=== PATIENT | male | born 1965 | race Caucasian/White ===

== ENCOUNTER → 2019-03-22 09:41 | Outpatient (BNVA) | payer MEDICARE, SELFPAY | PROVIDERS: Family Provider Nurse Practitioner Family; PCP Nurse Practitioner Family; Referring Provider Nurse Practitioner Family; Visit Provider Specialist | DX: M25.562 Pain in left knee (principal); M17.12 Unilateral primary osteoarthritis, left knee; M76.52 Patellar tendinitis, left knee | CPT/HCPCS: 73560; 73565 ==

== ENCOUNTER → 2019-08-15 11:48 | Outpatient (BNVA) | payer MEDICARE, SELFPAY | PROVIDERS: Family Provider Nurse Practitioner Family; PCP Nurse Practitioner Family; Visit Provider Specialist | DX: M17.12 Unilateral primary osteoarthritis, left knee (principal) | CPT/HCPCS: 73560; 73565 ==

== ENCOUNTER 2019-08-15 15:24 | Outpatient (CLI) | payer MEDICARE, SELFPAY | END 2019-08-15 15:25 | disposition home or self-care (01) | LOC: SPT 15:25 | PROVIDERS: Family Provider Nurse Practitioner Family; PCP Nurse Practitioner Family; Visit Provider Specialist | DX: Z46.89 Encounter for fitting and adjustment of other specified devices (principal); M17.12 Unilateral primary osteoarthritis, left knee | CPT/HCPCS: 73560; 73565; 97760; L1812 ==

== ENCOUNTER 2019-09-12 12:49 | Outpatient (CLI) | payer MEDICARE, SELFPAY ==
--- NOTE | 2019-09-12 12:57 | IR_ITS ---
WS: [id number] LEFT KNEE CT ARTHROGRAM (FLUOROSCOPY) LEFT knee arthrogram was performed in fluoroscopy prior to CT evaluation. HISTORY: LEFT KNEE PAIN COMPARISON: 08/15/2019 Fluoroscopy time: 0.7 minutes. Procedure, risks and complications were explained to the patient. Complications include but not limit ed to bleeding, infection and contrast reaction. Current medications are reviewed. Skin is cleansed with ChloraPrep. Skin is anesthetized with 1% buffered lidocaine. 22-gauge needle is inserted into the LEFT suprapatellar bursa. Approximately 30 cc of Omnipaque 300 injected without co mplication. Patient will proceed to CT evaluation immediately. No complications were encountered. Patient is instructed to watch for post procedure infection or ble eding. Patient is also instructed to contact the radiology department with any concerns. Good injection of contrast into the knee joint. Mcmahan's cyst is noted medially. IR/[place] [id number] IMPRESSION: Uncomplicated LEFT knee joint injection prior to CT arthrogram.
--- NOTE | 2019-09-12 14:00 | CT_ITS ---
WS: [id number] CT ARTHROGRAM LEFT KNEE. HISTORY: KNEE PAIN Technique: All CT scans at [facility] use at least one of these dose optimization techniq ues: automated exposure control; mA and/or kV adjustment per patient size (includes targeted exams wh ere dose is matched to clinical indication); or iterative reconstruction. DLP: 1246.99 mGy-cm. COMPARISON: Radiographs 08/15/2019 Good opacification of the knee joint with contrast. Complex tear in the posterior horn of the medial meniscus. Horizontal and vertical components are not ed. No additional meniscal tears. Patellofemoral articulation is intact. No contrast extending into t he cartilage. Lateral menisci are intact. No contrast filling cartilage tears is evident. There is a very large Mcmahan's cyst which is lobulated and extends over length of at least 6.3 cm. A f ew scattered vascular calcifications present in the popliteal artery. CT/CT knee LT w con [id number] IMPRESSION: 1. Complex tear posterior horn medial meniscus LEFT knee. Horizontal and verti jessee components of the tear. 2. Large Mcmahan's cyst. 3. No contrast filling osteochondral defects.
[2019-09-12] MEDS: iohexol 300 mg/mL 50 mL Btl INTRA-ARTI (14:06)
== END 2019-09-12 12:50 | disposition home or self-care (01) ==
LOC: RADWPI 12:52
PROVIDERS: Family Provider Nurse Practitioner Family; PCP Nurse Practitioner Family; Visit Provider Specialist
DX: M25.562 Pain in left knee (principal); S83.232A Complex tear of medial meniscus, current injury, left knee, initial encounter; X58.XXXA Exposure to other specified factors, initial encounter; M71.22 Synovial cyst of popliteal space [Baker], left knee
CPT/HCPCS: 27369; 73701; 77002; Q9967

== ENCOUNTER → 2019-09-28 11:00 | Outpatient (BNVA) | payer MEDICARE, SELFPAY | PROVIDERS: PCP Nurse Practitioner Family; Visit Provider Internal Medicine | DX: R50.9 Fever, unspecified (principal) | CPT/HCPCS: 87635 ==

== ENCOUNTER 2019-10-02 09:38 | Day surgery (SDC) | payer MEDICARE, SELFPAY ==
[2019-10-02] MEDS: sodium chloride 0.9% 1,000 ML 30 ML IV (10:12)
[2019-10-02] MEDS: CELEcoxib 200 mg Capsule 400 MG PO (10:13)
[2019-10-02 10:23] LABS: Basophils # 0.1 10^3/uL (0.0-0.1); Basophils % 0.8 %; Eosinophils # 0.1 10^3/uL (0.0-0.8); Eosinophils % 1.3 %; Hematocrit 48.8 % (42.0-52.0); Hemoglobin 17.1 g/dL (11.7-16.6); Lymphocytes # 2.3 10^3/uL (0.8-4.8); Lymphocytes % 29.8 %; Mean Corpuscular Hemoglobin 31.7 pg (28.0-34.0); Mean Corpuscular Volume 90.4 fL (80-94); Mean Platelet Volume 9.3 fL (7.4-10.4); Monocytes # 0.5 10^3/uL (0.2-0.9); Neutrophils # 4.55 10^3/uL (1.8-7.7); Neutrophils % 60.3 %; Nucleated Red Blood Cells % 0 %; Platelet Count 220 10^3/cmm (130-400); Red Cell Distribution Width 12.6 % (12.1-15.1); White Blood Count 7.6 10^3/uL (4.0-10.0)
--- NOTE | 2019-10-02 10:45 | ANES.PREANE2 ---
Pre-Anesthetic Assessment Pre-Anesthetic Assessment: Height/Weight: Height 1.68 m Weight 92.986 kg Preop Diagnosis: Left knee medial meniscal tear Proposed Procedure: Operation Date: 10/02/19 11:25 Proposed Procedures p Left knee medial menisectomy with debridement 13185 S83.249(Left) - Nancy Howard MD Familial anesthetic complications: Shivering Last intake: Intake Last Liquid Date 10/01/19 Last Liquid Time 23:55 Last Solid Date 10/01/19 Last Solid Time 18:00 Social: Social History: Alcohol and No tobacco Comment: 6-7 beers a day Exam: Pre-Anes Outpt Exam: alert, oriented x 3, clear to auscultation bilaterally and regular rate & rhythm Airway: Cervical ROM: WNL MP: 4 Dentition: Chipped Additional comments: large neck circumference Pulmonary: Comments: hx of pneumonia years ago Metabolic: Metabolic: Morbid obesity Anesthetic Plan: ASA status: 1 Anesthesia: General Risk of > 500 ml blood loss (7ml/kg in children): No Meds/Allergies Current Medications: Current Medications Generic Name Dose Route Start Last Admin Trade Name Freq PRN Reason Stop Dose Admin Sodium Chloride 1,000 mls @ 30 ml s/hr 10/02/19 10:15 10/02/19 10:12 Sodium Chloride 0.9% IV 10/03/19 10:14 30 mls/hr .Q24H ASHLEY Administration PFSH Anesthesia PFSH: Medical History (Updated 09/27/19 @ 15:56 by Nancy Howard MD) Left knee DJD Surgical History H/O foot surgery History of back surgery Family History Other Diabetes Stroke Social History Smoking and tobacco status: heavy tobacco smoker smokeless tobacco Smokeless tobacco user: chewing tobacco Data Anesthesia CBC & Chem 7: 10/02/19 10:00 10/02/19 10:00 Other Labs: Laboratory Results - last 48 hr 10/02/19 10:00 WBC 7.6 RBC 5.40 H Hgb 17.1 H Hct 48.8 MCV 90.4 MCH 31.7 MCHC 35.0 RDW 12.6 Plt Count 220 MPV 9.3 Neut % (Auto) 60.3 Lymph % (Auto) 29.8 [place] % (Auto) 7.0 Eos % (Auto) 1.3 Baso % (Auto) 0.8 Neut # (Auto) 4.55 Lymph # (Auto) 2.3 [place] # (Auto) 0.5 Eos # (Auto) 0.1 Baso # (Auto) 0.1 Nucleated RBC % (auto) 0 Nucleated RBCs # 0.0 Cardiac Studies: No Data to Display
[2019-10-02 10:51] LABS: Alanine Aminotransferase 42 U/L (0-41); Albumin Level 4.6 g/dL (3.5-5.2); Alkaline Phosphatase 86 IU/L (40-130); Anion Gap 14.1 (5-19); Aspartate Amino Transferase 28 U/L (0-40); Blood Urea Nitrogen 10 mg/dL (6-20); Calcium 8.9 mg/dL (8.5-10.5); Carbon Dioxide 22 mmol/L (22-29); Chloride 107 mmol/L (98-107); Globulin 2.9 g/dL (1.3-4.6); Glomerular Filtration Rate 77.9 mL/min (90-130); Glucose 122 mg/dL (65-115); Osmolality Calculated 285 mOsm/kg (285-295); Potassium 4.1 mmol/L (3.5-5.1); Sodium 139 mmol/L (136-145); Total Bilirubin 0.7 mg/dL (0.15-1.2); Total Protein 7.5 g/dL (6.6-8.7)
--- NOTE | 2019-10-02 11:20 | W.PM.OPSUD ---
Surgery/Procedure H&P Update DATE OF PROCEDURE: October 02, 2019 DATE H&P PERFORMED: 09/26/19 H&P UPDATE INFORMATION: I have reviewed H&P completed within last 30 days, I have examined patient prior to procedure, No changes to prior documentation and H&P is in [facility] EMR on date indicated PREOP DIAGNOSIS: Left knee medial meniscal tear PLANNED PROCEDURE: Operation Date: 10/02/19 11:25 Proposed Procedures p Left knee medial menisectomy with debridement 07868 S83.249(Left) - Nancy Howard MD Related Problem List Diagnoses (1) Medial meniscus tear: Qualifiers: Tear current or old: current Encounter type: initial encounter Meniscus tear of knee type: complex Laterality: left Qualified Code(s): S83.232A - Complex tear of medial meniscus, current injury, left knee, initial encounter (2) Left knee DJD: Qualifiers: Osteoarthritis type: primary Qualified Code(s): M17.12 - Unilateral primary osteoarthritis, left knee
[2019-10-02] MEDS: clindamycin 600 MG/50 ML PREMIX 100 MG IV (11:43)
[2019-10-02] MEDS: morphine 4 mg/mL SDV 1 mL 8 MG XX (12:36)
[2019-10-02 13:07] VITALS: BP 162/100; PULSE 102; RESP 16; TEMP 36.2; O2SAT 96
[2019-10-02 13:10] VITALS: BP 148/100; PULSE 97; RESP 17; O2SAT 97
[2019-10-02 13:15] VITALS: BP 165/99; PULSE 102; RESP 16; TEMP 36.5; O2SAT 94
[2019-10-02 13:20] VITALS: BP 145/98; PULSE 94; RESP 16; TEMP 36.6; O2SAT 95
[2019-10-02 13:35] VITALS: BP 158/95; PULSE 85; RESP 16; TEMP 36.6; O2SAT 96
[2019-10-02] MEDS: HYDROcodone-acetaminophen 5-325 mg Tablet 1 TAB PO (13:37)
--- NOTE | 2019-10-02 14:00 | ANE.PACU2 ---
Inpatient post-anesthesia follow up: Airway intact: Yes Vital signs: Temperature 97.9 F Pulse Rate 85 Respiratory Rate 16 Blood Pressure 158/95 Pulse Oximetry 96 Oxygen Delivery Me thod Room Air Oxygen Flow Rate 8 Fraction of Inspir ed Oxygen Hydration adequate: Yes Nausea and vomiting: No Pain level: 1 Mental status: Baseline
--- NOTE | 2019-10-02 15:11 | P.OP_ITS ---
Operative Report Date of procedure: October 02, 2019 Pre-op Diagnosis: Left knee medial meniscal tear Post-op Diagnosis: Left knee medial and lateral meniscus tears Post-op Findings: Complex tear posterior half of the medial meniscus and posterior horn tear lateral meniscus with synovitis Procedure Done: Left arthroscopic knee surgery with partial medial and lateral meniscectomies and synovial debridement Pathology: none sent Surgeon: aNncy Howard Risk Control Field Representative: [facility] OR technicians Estimated blood loss (mL): 10 Tourniquet time (min): 41 Tourniquet time: At 250 mmHg IV fluids (mL): 1,300 Urine output (mL): 0 Complications: None Condition: stable Disposition: PACU (Then home with family) Brief History: This 53-year-old gentleman presented with complaints of left knee pain. His MRI demonstrated a posterior horn medial meniscal tear, and the patient had signs and symptoms of degenerative osteoarthritic change. The patient wished to proceed with arthroscopic intervention. Risks and complications were discussed with him preoperatively, and consents were signed. Procedure: Patient was brought to the operating theater and after undergoing adequate general anesthesia, the patient's left lower extremity was prepped and draped in usual fashion utilizing DuraPrep. A tourniquet was placed high on the leg prior to prepping and draping. The tourniquet was elevated prior to commencement of the surgical procedure to 250 mmHg. Total tourniquet time was 41 minutes. Elevation followed prepping and exsanguination. Prior to commencement of the surgical procedure, a surgical pause was performed. At the time of the surgical pause, we identified the site and side of surgery. We also confirmed the patient's identity and appropriate and timely administration of preoperative antibiotics. Preoperative surgical markings were also visualized at this time. Standard arthroscopic portals were utilized including superolateral, infe romedial, and inferolateral portals. The examination commenced in the suprapatellar pouch area where the patient was noted to have synovitis along the medial border of the patellofemoral compartment. The arthroscope was then passed in the medial compartment where there was noted to be complex tearing in the posterior horn of the medial meniscus. The anterior horn was noted to be intact. There was minimal cartilaginous change within the medial compartment. The arthroscope was then passed across the notch area where anterior cruciate ligament was visualized and found to be intact. The scope was passed into the lateral compartment with the knee in a [id number] position. Lateral meniscus was noted to have complex tearing of the posterior horn, but otherwise, the meniscus appeared intact. It was palpated and found to not be displaceable into the knee joint. The complex posterior horn lateral meniscal tear was addressed with a combination of the intra-articular shaver and the heat wand. Scope was then returned to the medial compartment where complex tearing of the medial meniscus was addressed. This was addressed with a combination of basket forceps, the intra-articular shaver, and the heat wand. The anterior horn was noted to be intact. The meniscus was palpated and found to be not displaceable into the knee joint. The arthroscope was then returned to the patellofemoral joint where a synovectomy was performed. This synovectomy involved use of the intra-articular shaver as well as the heat wand. Once the patellofemoral compartment had been addressed, the scope was passed back through the knee compartments to evaluate for other abnormalities. Finding none, attention was directed to closure. The knee was copiously irrigated and suctioned dry. Following this, each portal was closed with a simple suture followed by Exofin and Tegaderm. Additionally, the knee was injected with 20 mL of half percent ropivacaine and 8 mg of morphine. Additional 10 mL of ropivacaine was placed about the portals. Sterile dressing was placed consisting of the Tegaderm followed by the Nabil wrap. Patient was returned to Recovery Room in satisfactory condition where he will be discharged home to follow-up with me in the office as scheduled. There were no complications and no specimens. Associated Problem List Diagnoses (1) Lateral meniscus tear, current: Qualifiers: Encounter type: initial encounter Meniscus tear of knee type: complex Laterality: left Qualified Code(s): S83.272A - Complex tear of lateral meniscus, current injury, left knee, initial encounter (2) Medial meniscus tear: Qualifiers: Encounter type: initial encounter Laterality: left Meniscus tear of knee type: complex Tear current or old: current Qualified Code(s): S83.232A - Complex tear of medial meniscus, current injury, left knee, initial encounter
== END 2019-10-02 14:00 | disposition home or self-care (01) ==
PROVIDERS: PCP Nurse Practitioner Family; Visit Provider Specialist
PROC: (CPT 29870; principal; 2019-10-02 11:25)
DX: S83.232A Complex tear of medial meniscus, current injury, left knee, initial encounter (principal); S83.272A Complex tear of lateral meniscus, current injury, left knee, initial encounter; M17.12 Unilateral primary osteoarthritis, left knee; M65.862 Other synovitis and tenosynovitis, left lower leg; E66.01 Morbid (severe) obesity due to excess calories; F17.220 Nicotine dependence, chewing tobacco, uncomplicated; X58.XXXA Exposure to other specified factors, initial encounter
CPT/HCPCS: 29880; 12345; 80053; 85025; 96365; J0131; J1100; J1885; J2270; J2405; J2704; J2765; J2795; J3010; J3490; J7030

== ENCOUNTER → 2019-12-12 12:42 | Outpatient (BNVA) | payer MEDICARE, SELFPAY | PROVIDERS: PCP Nurse Practitioner Family; Visit Provider Specialist | DX: Z11.59 Encounter for screening for other viral diseases (principal) | CPT/HCPCS: 87635 ==

== ENCOUNTER 2019-12-18 07:07 | Day surgery (SDC) | payer MEDICARE, SELFPAY ==
[2019-12-17 14:27] VITALS: BMI 33.9
[2019-12-18] VITALS (7 sets, daily range): BP systolic 131–156; BP diastolic 91–108; PULSE 69–85; RESP 16–28; TEMP 36.3–36.6; O2SAT 93–100; BMI 33.9
[2019-12-18] MEDS: sodium chloride 0.9% 1,000 ML 30 ML IV (07:34)
[2019-12-18] MEDS: CELEcoxib 200 mg Capsule 400 MG PO (07:35)
[2019-12-18 07:40] LABS: Basophils % 0.4 %; Eosinophils # 0.1 10^3/uL (0.0-0.8); Eosinophils % 1.7 %; Hematocrit 49.8 % (42.0-52.0); Hemoglobin 17.1 g/dL (11.7-16.6); Lymphocytes # 1.9 10^3/uL (0.8-4.8); Lymphocytes % 36.6 %; Mean Corpuscular HGB Conc 34.3 g/dL (30.0-36.0); Mean Corpuscular Hemoglobin 30.9 pg (28.0-34.0); Mean Corpuscular Volume 89.9 fL (80-94); Mean Platelet Volume 9.6 fL (7.4-10.4); Monocytes # 0.5 10^3/uL (0.2-0.9); Monocytes % 9.1 %; Neutrophils # 2.72 10^3/uL (1.8-7.7); Neutrophils % 51.4 %; Nucleated Red Blood Cells % 0 %; Platelet Count 221 10^3/cmm (130-400); Red Blood Count 5.54 10^6/uL (4.1-5.3); Red Cell Distribution Width 12.3 % (12.1-15.1); White Blood Count 5.3 10^3/uL (4.0-10.0)
--- NOTE | 2019-12-18 07:53 | P.HPUD_ITS ---
Surgery/Procedure H&P Update DATE OF PROCEDURE: December 18, 2019 DATE H&P PERFORMED: 12/06/19 H&P UPDATE INFORMATION: I have reviewed H&P completed within last 30 days, I have examined patient prior to procedure, No changes to prior documentation and H&P is in [facility] EMR on date indicated PREOP DIAGNOSIS: Internal derangement left knee PLANNED PROCEDURE: Operation Date: 12/18/19 08:00 Proposed Procedures p Left Knee Arthroscopy with debridement 35364 M23.92(Left) - Nancy Howard MD Related Problem List Diagnoses (1) Internal derangement of left knee:
--- NOTE | 2019-12-18 07:53 | ANES.PREANE2 ---
Pre-Anesthetic Assessment Pre-Anesthetic Assessment: Height/Weight: Height 1.68 m Weight 95.254 kg Temp Pulse Resp BP Pulse Ox 97.7 F 74 18 140/91 99 12/18/19 07:16 12/18/19 07:16 12/18/19 07:16 12/18/19 07:16 12/18/19 07:16 Preop Diagnosis: Internal derangement left knee Proposed Procedure: Operation Date: 12/18/19 08:00 Proposed Procedures p Left Knee Arthroscopy with debridement 66233 M23.92(Left) - Nancy Howard MD Familial anesthetic complications: None Was Beta Gena taken within 24 hours: N/A Last intake: Intake Last Liquid Date 12/17/19 Last Liquid Time 23:30 Last Solid Date 12/17/19 Last Solid Time 22:00 Social: Social History: Alcohol (6-7 beers daily) and No tobacco Exam: Pre-Anes Outpt Exam: alert, oriented x 3, clear to auscultation bilaterally and regular rate & rhythm Airway: Cervical ROM: WNL MP: 4 Dentition: Chipped Additional comments: large neck Anesthetic Plan: ASA status: 1 Anesthesia: MAC Risk of > 500 ml blood loss (7ml/kg in children): No Meds/Allergies Current Medications: Current Medications Generic Name Dose Route Start Last Admin Trade Name Freq PRN Reason Stop Dose Admin Sodium Chloride 1,000 mls @ 30 ml s/hr 12/18/19 06:45 12/18/19 07:34 Sodium Chloride 0.9% IV 12/19/19 06:44 30 mls/hr .Q24H ASHLEY Administration PFSH Anesthesia PFSH: Medical History (Updated 12/06/19 @ 15:46 by Nancy Howard MD) Left knee DJD Surgical History H/O foot surgery History of back surgery Family History Other Diabetes Stroke Social History Smoking and tobacco status: heavy tobacco smoker smokeless tobacco Smokeless tobacco user: chewing tobacco Data Anesthesia CBC & Chem 7: 12/18/19 07:30 12/18/19 07:30 Other Labs: Laboratory Results - last 48 hr 12/18/19 07:30 WBC 5.3 RBC 5.54 H Hgb 17.1 H Hct 49.8 MCV 89.9 MCH 30.9 MCHC 34.3 RDW 12.3 Plt Count 221 MPV 9.6 Neut % (Auto) 51.4 Lymph % (Auto) 36.6 [place] % (Auto) 9.1 Eos % (Auto) 1.7 Baso % (Auto) 0.4 Neut # (Auto) 2.72 Lymph # (Auto) 1.9 [place] # (Auto) 0.5 Eos # (Auto) 0.1 Baso # (Auto) 0.0 Nucleated RBC % (auto) 0 Nucleated RBCs # 0.0 Cardiac Studies: No Data to Display
[2019-12-18 08:03] LABS: Alanine Aminotransferase 70 U/L (0-41); Albumin Level 4.4 g/dL (3.5-5.2); Alkaline Phosphatase 100 IU/L (40-130); Anion Gap 15.3 (5-19); Aspartate Amino Transferase 46 U/L (0-40); Blood Urea Nitrogen 14 mg/dL (6-20); Carbon Dioxide 22 mmol/L (22-29); Chloride 107 mmol/L (98-107); Globulin 3.1 g/dL (1.3-4.6); Glomerular Filtration Rate 77.9 mL/min (90-130); Glucose 105 mg/dL (65-115); Osmolality Calculated 291 mOsm/kg (285-295); Potassium 4.3 mmol/L (3.5-5.1); Sodium 140 mmol/L (136-145); Total Bilirubin 0.4 mg/dL (0.15-1.2); Total Protein 7.5 g/dL (6.6-8.7)
[2019-12-18] MEDS: clindamycin 600 MG/50 ML PREMIX 100 MG IV (08:03)
[2019-12-18] MEDS: morphine 4 mg/mL SDV 1 mL 8 MG IM (08:47)
--- NOTE | 2019-12-18 10:07 | PM.OP ---
Operative Report Date of procedure: December 18, 2019 Pre-op Diagnosis: Internal derangement left knee Post-op Diagnosis: Left knee adhesions with recurrent medial and lateral meniscal tears, joint effusion, and synovitis Procedure Done: Left arthroscopic knee surgery with partial medial and lateral meniscectomies and synovial debridement Pathology: none sent Surgeon: Nancy Howard Agri Business Agent: [facility] OR technicians Anesthesia: General (LMA, ASA 1) Estimated blood loss (mL): 2 Tourniquet time (min): 51 Tourniquet time: At 250 mmHg IV fluids (mL): 1,000 Urine output: No [place] Complications: None Findings: Significant synovitis with irregularity at the area of previous meniscectomy. There was also evidence of significant adhesions within the knee and effusion upon entry into the knee. Condition: stable Disposition: PACU (Then to same-day surgery for discharge home.) Brief History: This 53-year-old gentleman underwent arthroscopic knee surgery on October 02, 2019. He was doing well postoperatively, but then he noted that his knee began clicking and locking on occasion. The patient wished to have this readdressed. He also had increased swelling. He denied any significant new injury. Procedure: Patient was brought to the operating theater and after undergoing adequate general anesthesia per LMA, ASA 1, the patient's left lower extremity was prepped and draped in usual fashion utilizing DuraPrep. A tourniquet was placed high on the leg prior to prepping and draping. The tourniquet was elevated prior to commencement of the surgical procedure to 250 mmHg. Total tourniquet time was 51 minutes. Elevation followed prepping and exsanguination. Prior to commencement of the surgical procedure, a surgical pause was performed. At the time of the surgical pause, we identified the site and side of surgery. We also confirmed the patient's identity and appropriate and timely administration of preoperative antibiotics, clindamycin 600 mg. Preoperative surgical markings were also visualized at this time. Standard arthroscopic portals were utilized including superolateral, inferomedial, and inferolateral portals. There was significant thick synovial fluid obtained upon entry into the joint. Examination commenced, and the patient was noted to have synovitis as well as adhesions throughout the knee. These were addressed with a combination of the arthroscopic shaver and manual debridement. It was difficult to evaluate the suprapatellar pouch area as the patient was quite tight. Further anesthesia was administered. There was synovitis noted in the suprapatellar pouch and this was debrided. Following this, the arthroscope was then passed into the medial compartment. Anteriorly, across the anterior aspect of the medial compartment, the lateral compartment, and the anterior aspect of the anterior cruciate ligament, there was significant synovitis and adhesions. These were addressed with the shaver and with the intra-articular heat wand. Once these were addressed, the knee was easier to manipulate. Previous medial meniscal resection was evaluated, this was further debrided with the shaver and with the heat wand. There were no displaceable fragments to account for locking. The meniscus was otherwise found to be intact without evidence of significant new injury aside from the adhesions around it. The arthroscope was then passed across the notch area where anterior cruciate ligament was visualized and found to be intact, but again, there was synovitis, and this was debrided with the shaver and addressed with the heat wand. The scope was passed into the lateral compartment with the knee in a [id number] position. Lateral meniscus was noted to have recurrent inner rim irregularity. This was addressed with the intra-articular shaver and the heat wand. Palpation of the meniscus demonstrated there were no displaceable fragments. The meniscus was noted to be quite stable. The arthroscope was then returned to the patellofemoral joint where a synovectomy was performed. This synovectomy involved use of the intra-articular shaver as well as the heat wand. Once the patellofemoral compartment had been addressed, the scope was passed back through the knee compartments to evaluate for other abnormalities. Finding none, attention was directed to closure. The knee was copiously irrigated and suctioned dry. Following this, each portal was closed with a simple suture followed by Exofin and Tegaderm. Additionally, the knee was injected with 20 mL of half percent ropivacaine and 8 mg of morphine. Additional 10 mL of ropivacaine was placed about the portals. Sterile dressing was placed consisting of the Tegaderm followed by the Nabil wrap. Patient was returned to Recovery Room in satisfactory condition where he will be discharged home to follow-up with me in the office as scheduled. There were no complications and no specimens. Associated Problem List Diagnoses (1) Internal derangement of left knee:
[2019-12-18] MEDS: HYDROcodone-acetaminophen 5-325 mg Tablet 1 TAB PO (10:33)
--- NOTE | 2019-12-18 10:40 | ANE.PACU2 ---
Inpatient post-anesthesia follow up: Airway intact: Yes Vital signs: Temperature 97.3 F Pulse Rate 69 Respiratory Rate 20 Blood Pressure 155/96 Pulse Oximetry 98 Oxygen Delivery Me thod Room Air Oxygen Flow Rate 8 Fraction of Inspir ed Oxygen Hydration adequate: Yes Nausea and vomiting: No Pain level: 5 Mental status: Baseline
== END 2019-12-18 10:43 | disposition home or self-care (01) ==
PROVIDERS: PCP Nurse Practitioner Family; Visit Provider Specialist
PROC: (CPT 29870; principal; 2019-12-18 08:00)
DX: M23.92 Unspecified internal derangement of left knee (principal); F17.210 Nicotine dependence, cigarettes, uncomplicated
CPT/HCPCS: 29880; 12345; 36415; 80053; 85025; 96365; J0131; J1100; J2270; J2405; J2704; J2710; J2795; J3010; J3490; J7030

== ENCOUNTER → 2020-04-24 16:28 | Outpatient (BNVA) | payer MEDICARE, SELFPAY | PROVIDERS: PCP Nurse Practitioner Family; Visit Provider Nurse Practitioner Family | DX: R53.83 Other fatigue (principal); I10 Essential (primary) hypertension; D58.2 Other hemoglobinopathies; G47.00 Insomnia, unspecified; M17.12 Unilateral primary osteoarthritis, left knee | CPT/HCPCS: 80053; 80061; 84443; 85025 ==

== ENCOUNTER → 2020-12-09 10:03 | Outpatient (BNVA) | payer MEDICARE, SELFPAY | PROVIDERS: PCP Nurse Practitioner Family; Visit Provider Nurse Practitioner Family | DX: I10 Essential (primary) hypertension (principal); G47.00 Insomnia, unspecified; M25.562 Pain in left knee | CPT/HCPCS: 80048; 80061 ==

== ENCOUNTER → 2021-02-11 10:59 | Outpatient (BNVA) | payer MEDICARE, SELFPAY | PROVIDERS: PCP Nurse Practitioner Family; Referring Provider Nurse Practitioner Family; Visit Provider Specialist | DX: M25.561 Pain in right knee (principal); M25.562 Pain in left knee; M77.32 Calcaneal spur, left foot | CPT/HCPCS: 73560; 73565 ==

== ENCOUNTER 2021-02-27 14:42 | Emergency (ER) | payer MEDICARE, SELFPAY ==
[2021-02-27 14:58] VITALS: TEMP 37.3; BMI 32.3
--- NOTE | 2021-02-27 15:02 | ECG_ITS ---
[facility] Test Date: 2021-02-27 Pat Name: Andre Conn Department: Room: Gender: Male Rn Home Care: : 1965 Requested By: Wayne Hamilton Order Number: [id number] Reading MD: DAVID BECK Measurements Intervals [place] Rate: 66 P: 36 IN: 149 QRS: -37 QRSD: 105 T: 30 QT: 381 QTc: 400 Interpretive Statements SINUS RHYTHM LEFT AXIS DEVIATION [QRS AXIS < -30] No previous ECG available for comparison Electronically Signed On 02-27-2021 18:14:23 FREIGHT ADJUSTER by DAVID BECK [id number]
--- NOTE | 2021-02-27 15:02 | XR_ITS ---
WS: [id number] XR chest 1V portable [id number] REASON FOR EXAM: chest pain FINDINGS: No recent examination for comparison. Mild tortuosity and ectasia of the thoracic aorta. The heart is not significantly enlarged. Calcified granulomatous disease in both hemithoraces. Linear opacities in the medial lung bases most prominently on the right. No other significant pulmona ry parenchymal or pleural abnormality. Mild changes of degenerative spondylosis in the mid and lower thoracic spine. XR/XR chest 1V portable [id number] IMPRESSION: Linear lung base opacities which may be chronic in nature however there are no prior chest films for comparison and a follow-up examination is recommended as clinically warranted.
[2021-02-27 15:03] VITALS: BP 124/80; PULSE 69; RESP 15; O2SAT 99
[2021-02-27 15:33] LABS: Basophils # 0.1 10^3/uL (0.0-0.1); Basophils % 0.5 %; Eosinophils # 0.1 10^3/uL (0.0-0.8); Eosinophils % 0.6 %; Hematocrit 48.9 % (42.0-52.0); Lymphocytes # 2.1 10^3/uL (0.8-4.8); Lymphocytes % 22.1 %; Mean Corpuscular HGB Conc 34.8 g/dL (30.0-36.0); Mean Corpuscular Hemoglobin 30.6 pg (28.0-34.0); Mean Corpuscular Volume 88.1 fl (80-94); Mean Platelet Volume 9.9 fL (7.4-10.4); Monocytes # 0.6 10^3/uL (0.2-0.9); Monocytes % 5.9 %; Neutrophils # 6.66 10^3/uL (1.8-7.7); Neutrophils % 70.4 %; Nucleated Red Blood Cells % 0 %; Platelet Count 257 10^3/cmm (130-400); Red Blood Count 5.55 10^6/uL (4.1-5.3); Red Cell Distribution Width 11.5 % (12.1-15.1); White Blood Count 9.5 10^3/uL (4.0-10.0)
[2021-02-27 15:43] LABS: Alanine Aminotransferase 35 U/L (0-41); Albumin Level 4.4 g/dL (3.5-5.2); Alkaline Phosphatase 85 IU/L (40-130); Anion Gap 16.9 (5-19); Aspartate Amino Transferase 21 U/L (0-40); Blood Urea Nitrogen 11 mg/dL (6-20); Calcium 8.6 mg/dL (8.5-10.5); Carbon Dioxide 24 mmol/L (22-29); Chloride 99 mmol/L (98-107); Globulin 2.1 g/dL (1.3-4.6); Glomerular Filtration Rate 87.3 mL/min (90-130); Glucose 104 mg/dL (65-115); Osmolality Calculated 282 mOsm/kg (285-295); Potassium 3.9 mmol/L (3.5-5.1); Sodium 136 mmol/L (136-145); Total Bilirubin 0.9 mg/dL (0.15-1.2); Total Protein 6.5 g/dL (6.6-8.7)
[2021-02-27 15:46] LABS: Troponin(5th) Baseline 6 ng/L (0-15)
[2021-02-27 15:49] VITALS: BP 122/86; PULSE 69; RESP 19; O2SAT 96
--- NOTE | 2021-02-27 15:56 | W.ED.CHESTPA ---
HPI - Chest Pain General: Chief Complaint: Chest Pain Stated Complaint: CHEST PAIN/ DIZZY Time Seen by Provider: 02/27/21 14:49 History of Present Illness: HPI narrative: 55-year-old male presents emergency room with a chief complaint of chest pain. Chest pain began last night dizziness. He was seen there he relates he was told he had a blockage in his heart and would need to see a plastic jig and fixture builder. He was discharged home he states he continues to have dizziness and chest discomfort radiating into his left arm at times has not had any shortness of breath with that. Patient has not diabetic no known history of coronary artery disease non-smoker. MD complaint: chest pain Onset (ago): day(s) Timing of current episode: episodic Prior episodes: Yes Onset: during rest Pain location: left chest Pain radiation: left arm Severity: moderate Quality: aching and heaviness Relieving factors: nothing Exacerbating factors: nothing Associated symptoms: Reports dyspnea; Deny abdominal pain, diaphoresis, fever(s), leg edema, nausea, palpitations, sense of impending doom, syncope or vomiting Treatment prior to arrival: none Review of Systems Const: Denies: fever(s) or diaphoresis ENMT: Denies: throat pain, ear or mastoid pain, nasal discharge or nasal congestion Card: Denies: palpitations or syncope Resp: Reports: dyspnea GI: Denies: abdominal pain, nausea or vomiting : Denies: flank pain, dysuria, urinary frequency or urinary urgency Skin/Breast: Denies: rash or pruritus PFSH ED PFSH: Medical History Hypertension Left knee DJD Osteoarthritis Surgical History H/O foot surgery History of back surgery Family History Other Diabetes Stroke Social History Smoking and tobacco status: heavy tobacco smoker smokeless tobacco Smokeless tobacco user: chewing tobacco Physical Exam Const: COMMON NORMALS: no acute distress GENERAL APPEARANCE: cooperative and comfortable ORIENTATION/CONSCIOUSNESS: Yes awake, Yes oriented to person, Yes oriented to place and Yes oriented to time HENMT: COMMON NORMALS: normocephalic, atraumatic and hearing grossly normal bilaterally HEAD & SCALP: normocephalic and atraumatic Neck/C-Spine: COMMON NORMALS: no JVD Resp: COMMON NORMALS: normal respiratory effort, No retractions, No use of accessory muscles and clear to auscultation bilaterally AUSCULTATION: clear to auscultation bilaterally Cardio: COMMON NORMALS: no JVD, regular rate, regular rhythm and No murmurs present (Cardio) RATE: regular rate RHYTHM: regular rhythm GI: COMMON NORMALS: Soft to palpation and No hepatosplenomegaly present AUSCULTATION: Yes normoactive bowel sounds PALPATION: Yes Soft to palpation, No Tenderness to palpation present (GI), No Guarding due to palpation present (GI) and Yes No hepatosplenomegaly present Extremity: COMMON NORMALS: normal to inspection, capillary refill normal, no clubbing, cyanosis or edema, no calf tenderness and no pedal edema Neuro: SENSORIUM/ORIENTATION: Yes oriented to person, Yes oriented to place and Yes oriented to time Skin: COMMON NORMALS: no rashes or lesions noted GENERAL SKIN EXAM: no rashes or lesions noted Course Vital Signs: Vital signs: Vital Signs Temperature 99.2 F 02/27/21 14:58 Pulse Rate 75 02/27/21 18:53 Respiratory Rate 21 H 02/27/21 18:53 Blood Pressure 120/94 02/27/21 18:05 Pulse Oximetry 97 02/27/21 18:53 MDM - Chest Pain MDM Narrative Medical decision making narrative: Labs imaging and EKG reviewed. No significant findings troponins normal start on aspirin set up for outpatient stress testing. Return if has further problems. Lab Data Result diagrams: 02/27/21 15:13 02/27/21 15:13 Labs: Lab Results 02/27/21 02/27/21 02/27/21 15:13 15:13 15:13 WBC 9.5 10^3/uL 10^3/uL (4.0-10.0) RBC 5.55 10^6/uL H 10^6/uL (4.1-5.3) Hgb 17.0 g/dL H g/dL (11.7-16.6) Hct 48.9 % % (42.0-52.0) MCV 88.1 fl fl (80-94) MCH 30.6 pg pg (28.0-34.0) MCHC 34.8 g/dL g/dL (30.0-36.0) RDW 11.5 % L % (12.1-15.1) Plt Count 257 10^3/cmm 10^3/cmm (130-400) MPV 9.9 fL fL (7.4-10.4) Neut % (Auto) 70.4 % % Lymph % (Auto) 22.1 % % [place] % (Auto) 5.9 % % Eos % (Auto) 0.6 % % Baso % (Auto) 0.5 % % Neut # (Auto) 6.66 10^3/uL 10^3/uL (1.8-7.7) Lymph # (Auto) 2.1 10^3/uL 10^3/uL (0.8-4.8) [place] # (Auto) 0.6 10^3/uL 10^3/uL (0.2-0.9) Eos # (Auto) 0.1 10^3/uL 10^3/uL (0.0-0.8) Baso # (Auto) 0.1 10^3/uL 10^3/uL (0.0-0.1) Nucleated RBC % (auto) 0 % % Nucleated RBCs # 0.0 /100WBC /100WBC Sodium 136 mmol/L mmol/L (136-145) Potassium 3.9 mmol/L mmol/L (3.5-5.1) Chloride 99 mmol/L mmol/L (98-107) Carbon Dioxide 24 mmol/L mmol/L (22-29) Anion Gap 16.9 (5-19) BUN 11 mg/dL mg/dL (6-20) Creatinine 0.9 mg/dL mg/dL (0.7-1.2) GFR Calculation 87.3 mL/min L mL/min (90-130) Glucose 104 mg/dL mg/dL (65-115) Calculated Osmolality 282 mOsm/kg L mOsm/kg (285-295) Calcium 8.6 mg/dL mg/dL (8.5-10.5) Total Bilirubin 0.9 mg/dL mg/dL (0.15-1.2) AST 21 U/L U/L (0-40) ALT 35 U/L U/L (0-41) Alkaline Phosphatase 85 IU/L IU/L (40-130) Troponin T Baseline 6 ng/L ng/L (0-15) Troponin T 120 Minute Delta Troponin T Total Protein 6.5 g/dL L g/dL (6.6-8.7) Albumin 4.4 g/dL g/dL (3.5-5.2) Globulin 2.1 g/dL g/dL (1.3-4.6) SARS-CoV-2 RNA (RT-PCR) 02/27/21 02/27/21 17:09 18:38 WBC RBC Hgb Hct MCV MCH MCHC RDW Plt Count MPV Neut % (Auto) Lymph % (Auto) [place] % (Auto) Eos % (Auto) Baso % (Auto) Neut # (Auto) Lymph # (Auto) [place] # (Auto) Eos # (Auto) Baso # (Auto) Nucleated RBC % (auto) Nucleated RBCs # Sodium Potassium Chloride Carbon Dioxide Anion Gap BUN Creatinine GFR Calculation Glucose Calculated Osmolality Calcium Total Bilirubin AST ALT Alkaline Phosphatase Troponin T Baseline Troponin T 120 Minute 6.00 ng/L ng/L (0-15) Delta Troponin T 0 ABS# ABS# (0-10) Total Protein Albumin Globulin SARS-CoV-2 RNA (RT-PCR) Not detected (NOT DETECTED) Discharge Plan Discharge Patient Disposition: Home Clinical Impression: Atypical chest pain, Hypertension Condition: Stable Prescriptions: New aspirin 81 mg tablet,delayed release (DR/EC) 81 mg PO DAILY Qty: 30 0RF No Action indomethacin 25 mg capsule 25 mg PO BID PRN (Reason: kne farrell) Qty: 60 1RF Rx Instructions: administer with food or milk (DME) HINGED KNEE BRACE See Rx Instructions .Route .MEDSUPPLY Qty: 1 0RF Rx Instructions: As directed trazodone 50 mg tablet See Rx Instructions .ROUTE .COMPLEX Qty: 30 0RF Dose Instruction: TAKE 1 TABLET BY MOUTH AT BEDTIME Rx Instructions: TAKE 1 TABLET BY MOUTH AT BEDTIME lisinopril 10 mg tablet See Rx Instructions .ROUTE .COMPLEX Qty: 90 0RF Dose Instruction: TAKE 1 TABLET BY MOUTH DAILY Rx Instructions: TAKE 1 TABLET BY MOUTH DAILY Antivert 50 mg tablet 50 mg PO BID PRN (Reason: dizziness) Qty: 20 0RF Discharge Orders: Discharge ED (Routine); Ordered 02/27/21 Ordered By: Wayne Castro Referrals: Eva Holman FNP [Primary Care Provider] - Patient Instructions: Chest Pain (ED) Coding Level of Care Code ED Real Estate Broker Associate for Chg Fwd Exam Comprehensive
--- NOTE | 2021-02-27 16:17 | CTR_ITS ---
PROCEDURE INFORMATION: Exam: CT Head Without Contrast Exam date and time: 02/27/2021 4:17 PM Age: 55 years old Clinical indication: Patient HX: Dizziness x months TECHNIQUE: Imaging protocol: Computed tomography of the head without contrast. Radiation optimization: All CT scans at this facility use at least one of these dose optimization techniques: automated exposure control; mA and/or kV adjustment per patient size (includes targeted exams where dose is matched to clinical indication); or iterative reconstruction. COMPARISON: CR XR knees AP WB w LT lmt ORTH 02/11/2021 11:07 AM RADIATION DOSE METRICS: Total DLP (mGy-cm): 1262.76 FINDINGS: Brain: The brain is unremarkable. There is no mass effect or significant white matter disease. There is no acute intracranial hemorrhage. Cerebral ventricles: There is no significant ventricular dilation. The basal cisterns are unremarkable. Paranasal sinuses: The paranasal sinuses are clear. Mastoid air cells: The mastoid air cells are clear. Bones/joints: The calvarium is intact. Soft tissues: The visible extracranial soft tissues are unremarkable. CT/CT head wo con* [id number] IMPRESSION: No acute intracranial abnormality.
[2021-02-27 17:08] VITALS: BP 119/89; PULSE 67; RESP 19; O2SAT 97
[2021-02-27 17:42] LABS: Troponin 5 2HR Delta 0 ABS# (0-10)
[2021-02-27 18:05] VITALS: BP 120/94; PULSE 74; RESP 14; O2SAT 93
[2021-02-27 18:53] VITALS: PULSE 75; RESP 21; O2SAT 97
[2021-03-02 02:48] LABS: Quest SARS-CoV-2 RNA NOT DETECTED (NOT DETECTED)
--- NOTE | 2021-03-02 09:28 | PC.NURSE ---
pt notified of negative pcr covid
--- NOTE | 2021-03-02 11:09 | DCPLANNER ---
Addendum entered by Alma Delia Santos 05/14/21 09:15: Patient had an outpatient stress test scheduled for 05.12.21 - patient did attend appointment. Addendum entered by Alma Delia Santos 05/08/21 13:19: Patient has an outpatient stress test scheduled for Wednesday, May 12, 2021 at 10:00, centralized scheduling will call patient with appointment information. Original Note: integrated marketing manager had message to schedule an outpatient stress test for patient. integrated marketing manager faxed signed order to centralized scheduling, who will call patient with appointment information.
== END 2021-02-27 18:54 | disposition home or self-care (01) ==
PROVIDERS: Emergency Provider Family Medicine; PCP Nurse Practitioner Family
DX: R07.89 Other chest pain (principal); I10 Essential (primary) hypertension; F17.220 Nicotine dependence, chewing tobacco, uncomplicated; Z20.822 Contact with and (suspected) exposure to COVID-19
CPT/HCPCS: 36415; 70450; 71045; 80053; 84484; 85025; 87635; 93005; 99284

== ENCOUNTER 2021-03-10 02:05 | Emergency (ER) | payer MEDICARE, SELFPAY ==
--- NOTE | 2021-03-10 02:07 | XRR_ITS ---
PROCEDURE INFORMATION: Exam: XR Chest Exam date and time: 03/10/2021 2:07 AM Age: 55 years old Clinical indication: Pain; Chest pressure; Prior surgery; Surgery date: 6+ months; Surgery type: Back; Additional info: Cp TECHNIQUE: Imaging protocol: XR of the chest. Views: 1 view. COMPARISON: CR XR chest 1V portable [id number] 02/27/2021 3:17 PM FINDINGS: Tubes, catheters and devices: Spinal cord stimulator leads overlie the thoracic spine. Lungs: Unremarkable. No consolidation. Pleural spaces: Unremarkable. No pleural effusion. No pneumothorax. Heart/Mediastinum: Unremarkable. No cardiomegaly. Bones/joints: Unremarkable. XR/XR chest 1V portable [id number] IMPRESSION: No acute disease.
--- NOTE | 2021-03-10 02:07 | ECG_ITS ---
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 Measurements Intervals [place] Rate: 77 P: 70 CT: 152 QRS: -37 QRSD: 110 T: 65 QT: 380 QTc: 431 Interpretive Statements SINUS RHYTHM LEFT AXIS DEVIATION [QRS AXIS < -30] Compared to ECG 02/27/2021 15:07:08 No significant changes Electronically Signed On 03-10-2021 17:23:12 LAUNDRY ROUTEMAN by Karla Michel M.D. [id number]
[2021-03-10 02:09] VITALS: BP 122/82; PULSE 77; RESP 16; TEMP 36.6; O2SAT 98; BMI 32.3
--- NOTE | 2021-03-10 02:11 | ED_ITS ---
HPI - Chest Pain General: Chief Complaint: Dizziness Stated Complaint: CP Time Seen by Provider: 03/10/21 02:06 Source: patient and EMS Mode of arrival: EMS Limitations: no limitations History of Present Illness: HPI narrative: 55-year-old male who has been here couple times last month for chest pain with some atypical in nature with normal work-ups he states that tonight he has been having chest pain throughout the day and all night over the last 12 to 14 hours its been constant states sharp pain in his left chest that same pain that he has been having he is not followed up with anyone since he has been here. Denies any shortness of breath patient took nitro with no improvement states he also had fentanyl with minimal improvement. He states he is also had dizziness. He states he just feels like the room is spinning especially with movement. Denies any weakness no focal deficits. Associated symptoms: Deny abdominal pain, dyspnea, fever(s), nausea or vomiting Review of Systems Const: Denies: fever(s), chills, body aches or change in appetite Eyes: Denies: blurry vision or eye discomfort ENMT: Denies: throat pain or dental pain Card: Reports: chest pain Resp: Denies: dyspnea GI: Denies: abdominal pain, nausea, vomiting or diarrhea : Denies: dysuria Musc: Denies: neck pain or back pain Skin/Breast: Denies: rash Neuro: Reports: dizziness Psych: Denies: depression Ste[place]/Lymph: Denies: easy bruising All/Imm: Denies: urticaria PFSH ED PFSH: Medical History Hypertension Left knee DJD Osteoarthritis Surgical History H/O foot surgery History of back surgery Family History Other Diabetes Stroke Social History Smoking and tobacco status: heavy tobacco smoker smokeless tobacco Smokeless tobacco user: chewing tobacco Physical Exam Const: COMMON NORMALS: no acute distress, patient oriented x3, healthy appe aring and alert HENMT: COMMON NORMALS: normocephalic and atraumatic HEAD & SCALP: normocephalic and atraumatic Eye: COMMON NORMALS: Equal, round and reactive pupils present and EOMs intact bilaterally PUPIL: Yes Equal, round and reactive pupils present Neck/C-Spine: COMMON NORMALS: full ROM and supple Chest: COMMONS NORMALS: normal inspection of the chest and normal palpation of entire chest wall Resp: COMMON NORMALS: normal respiratory effort, No retractions, No use of a ccessory muscles and clear to auscultation bilaterally AUSCULTATION: clear to auscultation bilaterally Cardio: COMMON NORMALS: regular rate, regular rhythm and No murmurs present (Cardio) RATE: regular rate RHYTHM: regular rhythm GI: COMMON NORMALS: Normal to inspection, nondistended, normoactive bowel sounds present, Soft to palpation, non-tender and no masses PALPATION: Yes Soft to palpation Extremity: COMMON NORMALS: normal to inspection and full ROM Neuro: COMMON NORMALS: patient oriented x3, moves all extremities and no focal motor deficits SENSORIUM/ORIENTATION: Yes alert CRANIAL NERVES: Yes CN normal except as noted SPEECH: speech normal GAIT: Yes Normal gait present MOTOR EXAM: 5/5 motor strength present throughout Psych: COMMON NORMALS: mental status grossly normal, Normal thought process present and cooperative THOUGHT PROCESS: Normal thought process present Skin: COMMON NORMALS: no rashes or lesions noted and no wounds GENERAL SKIN EXAM: no rashes or lesions noted Course Vital Signs: Vital signs: Vital Signs Temperature 98 F 03/10/21 02:09 Pulse Rate 77 03/10/21 02:09 Respiratory Rate 16 03/10/21 02:09 Blood Pressure 122/82 03/10/21 02:09 Pulse Oximetry 98 03/10/21 02:09 MDM - Chest Pain MDM Narrative Medical decision making narrative: Patient presents here with chest pain very atypical in nature initial and 2-hour troponin here negative. Patient CTA head and neck are normal as well he has no sign of a stroke his symptoms are resolved with Antivert will prescribe Antivert for home he is to follow-up with cardiology and return if worsening he understands agrees to plan. Lab Data Result diagrams: 03/10/21 02:22 03/10/21 02:22 Labs: Lab Results 03/10/21 03/10/21 03/10/21 02:22 02:22 02:22 WBC 7.8 10^3/uL 10^3/uL (4.0-10.0) RBC 5.15 10^6/uL 10^6/uL (4.1-5.3) Hgb 15.6 g/dL g/dL (11.7-16.6) Hct 44.8 % % (42.0-52.0) MCV 87.0 fl fl (80-94) MCH 30.3 pg pg (28.0-34.0) MCHC 34.8 g/dL g/dL (30.0-36.0) RDW 11.4 % L % (12.1-15.1) Plt Count 214 10^3/cmm 10^3/cmm (130-400) MPV 9.4 fL fL (7.4-10.4) Neut % (Auto) 71.6 % % Lymph % (Auto) 20.6 % % [place] % (Auto) 6.3 % % Eos % (Auto) 0.6 % % Baso % (Auto) 0.4 % % Neut # (Auto) 5.61 10^3/uL 10^3/uL (1.8-7.7) Lymph # (Auto) 1.6 10^3/uL 10^3/uL (0.8-4.8) [place] # (Auto) 0.5 10^3/uL 10^3/uL (0.2-0.9) Eos # (Auto) 0.1 10^3/uL 10^3/uL (0.0-0.8) Baso # (Auto) 0.0 10^3/uL 10^3/uL (0.0-0.1) Nucleated RBC % (auto) 0 % % Nucleated RBCs # 0.0 /100WBC /100WBC Sodium 136 mmol/L mmol/L (136-145) Chloride 101 mmol/L mmol/L (98-107) BUN 13 mg/dL mg/dL (6-20) Creatinine 0.9 mg/dL mg/dL (0.7-1.2) Calcium 8.7 mg/dL mg/dL (8.5-10.5) Total Bilirubin 0.5 mg/dL mg/dL (0.15-1.2) ALT 25 U/L U/L (0-41) Alkaline Phosphatase 80 IU/L IU/L (40-130) Troponin T Baseline 6 ng/L ng/L (0-15) Albumin 4.3 g/dL g/dL (3.5-5.2) Globulin 1.8 g/dL g/dL (1.3-4.6) EKG Data^ EKG 1: Attestation: I personally reviewed and interpreted this EKG as follows: EKG interpretation date: 03/10/21 EKG interpretation time: 02:09 Interpretation: nsr hr [address] or t wave abnormalities qrs 110 qtc 411 Discharge Plan Discharge Patient Disposition: Home Clinical Impression: Dizziness Chest pain Qualifiers: Chest pain type: unspecified Qualified Code(s): R07.9 - Chest pain, unspecified Condition: Stable Prescriptions: New Antivert 50 mg tablet 50 mg PO BID PRN (Reason: dizziness) Qty: 20 0RF No Action indomethacin 25 mg capsule 25 mg PO BID PRN (Reason: kne farrell) Qty: 60 1RF Rx Instructions: administer with food or milk (DME) HINGED KNEE BRACE See Rx Instructions .Route .MEDSUPPLY Qty: 1 0RF Rx Instructions: As directed trazodone 50 mg tablet See Rx Instructions .ROUTE .COMPLEX Qty: 30 0RF Dose Instruction: TAKE 1 TABLET BY MOUTH AT BEDTIME Rx Instructions: TAKE 1 TABLET BY MOUTH AT BEDTIME lisinopril 10 mg tablet See Rx Instructions .ROUTE .COMPLEX Qty: 90 0RF Dose Instruction: TAKE 1 TABLET BY MOUTH DAILY Rx Instructions: TAKE 1 TABLET BY MOUTH DAILY aspirin 81 mg tablet,delayed release (DR/EC) 81 mg PO DAILY Qty: 30 0RF Discharge Orders: Discharge ED (Routine); Ordered 03/10/21 Ordered By: Suma Rogers Referrals: Eva Holman FNP [Primary Care Provider] - Karla Michel MD [Physician] - 1-3 days Discharge Diet: Advance as tolerated Discharge Activity: Resume usual activity Patient Instructions: Chest Pain (ED), Dizziness (ED) Coding Level of Care Code ED Environmental Services Project Manager for Chg Fwd Exam Comprehensive
--- NOTE | 2021-03-10 02:11 | CTR_ITS ---
PROCEDURE INFORMATION: Exam: CT Angiography Head With Contrast, Arteriography Exam date and time: 03/10/2021 2:11 AM Age: 55 years old Clinical indication: Dizziness and giddiness; Additional info: Dizzy TECHNIQUE: Imaging protocol: Computed tomography angiography of the head with contrast. Exam focused on the arteries. 3D rendering (Not supervised by radiologist): MIP and/or 3D reconstructed images were created by the technologist. Radiation optimization: All CT scans at this facility use at least one of these dose optimization techniques: automated exposure control; mA and/or kV adjustment per patient size (includes targeted exams where dose is matched to clinical indication); or iterative reconstruction. Contrast material: OMNI 350; Contrast volume: 95 ml; Contrast route: INTRAVENOUS (IV); COMPARISON: CT head wo con* [id number] 02/27/2021 5:02 PM RADIATION DOSE METRICS: Total DLP (mGy-cm): 2772.98 FINDINGS: ANTERIOR CIRCULATION: Right internal carotid artery: Unremarkable. Intracranial segment is patent with no significant stenosis. No aneurysm. Right middle cerebral artery: Unremarkable. No occlusion or significant stenosis. No aneurysm. Right anterior cerebral artery: Unremarkable. No occlusion or significant stenosis. No aneurysm. Left internal carotid artery: Unremarkable. Intracranial segment is patent with no significant stenosis. No aneurysm. Left middle cerebral artery: Unremarkable. No occlusion or significant stenosis. No aneurysm. Left anterior cerebral artery: Unremarkable. No occlusion or significant stenosis. No aneurysm. POSTERIOR CIRCULATION: Right vertebral artery: Unremarkable. No occlusion or significant stenosis. No aneurysm. Left vertebral artery: Unremarkable. No occlusion or significant stenosis. No aneurysm. Basilar artery: Unremarkable. No occlusion or significant stenosis. No aneurysm. Right posterior cerebral artery: Unremarkable. No occlusion or significant stenosis. No aneurysm. Left posterior cerebral artery: Unremarkable. No occlusion or significant stenosis. No aneurysm. Brain: No definite mass, mass effect, or midline shift. Cerebral ventricles: No ventriculomegaly. Bones/joints: Unremarkable. No acute fracture. Soft tissues: Unremarkable. PROCEDURE INFORMATION: Exam: CT Angiography Neck With Contrast Exam date and time: 03/10/2021 2:11 AM Age: 55 years old Clinical indication: Dizziness and giddiness; Additional info: Dizzy TECHNIQUE: Imaging protocol: Computed tomography angiography of the neck with contrast. 3D rendering (Not supervised by radiologist): MIP and/or 3D reconstructed images were created by the technologist. Radiation optimization: All CT scans at this facility use at least one of these dose optimization techniques: automated exposure control; mA and/or kV adjustment per patient size (includes targeted exams where dose is matched to clinical indication); or iterative reconstruction. Contrast material: OMNI 350; Contrast volume: 95 ml; Contrast route: INTRAVENOUS (IV); COMPARISON: CT head wo [place]* [id number] 02/27/2021 5:02 PM RADIATION DOSE METRICS: Total DLP (mGy-cm): 2772.98 FINDINGS: Right common carotid artery: No stenosis. No dissection or occlusion. Right internal carotid artery: No stenosis of the extracranial segment. No dissection or occlusion. Right external carotid artery: No occlusion or stenosis of the origin. Left common carotid artery: No stenosis. No dissection or occlusion. Left internal carotid artery: No stenosis of the extracranial segment. No dissection or occlusion. Left external carotid artery: No occlusion or stenosis of the origin. Right vertebral artery: No stenosis. No dissection or occlusion. Left vertebral artery: No stenosis. No dissection or occlusion. Soft tissues: Normal. No significant soft tissue swelling. Bones/joints: No acute fracture. CT/CT angio headneck* [id number] IMPRESSION: No large vessel occlusion or stenosis. IMPRESSION: No vascular stenosis, occlusion or dissection. REFERENCES: NASCET CRITERIA. The degree of internal carotid artery stenosis is based on NASCET criteria. Normal is no stenosis. Mild is less than 50% stenosis. Moderate is 50-69% stenosis. Severe is 70% to 99% stenosis. Total occlusion is no detectable patent lumen.
[2021-03-10] MEDS: meclizine 25 mg tablet 50 MG PO (02:28)
[2021-03-10 02:33] LABS: Basophils % 0.4 %; Eosinophils # 0.1 10^3/uL (0.0-0.8); Eosinophils % 0.6 %; Hematocrit 44.8 % (42.0-52.0); Hemoglobin 15.6 g/dL (11.7-16.6); Lymphocytes # 1.6 10^3/uL (0.8-4.8); Lymphocytes % 20.6 %; Mean Corpuscular HGB Conc 34.8 g/dL (30.0-36.0); Mean Corpuscular Hemoglobin 30.3 pg (28.0-34.0); Mean Platelet Volume 9.4 fL (7.4-10.4); Monocytes # 0.5 10^3/uL (0.2-0.9); Monocytes % 6.3 %; Neutrophils # 5.61 10^3/uL (1.8-7.7); Neutrophils % 71.6 %; Nucleated Red Blood Cells % 0 %; Platelet Count 214 10^3/cmm (130-400); Red Blood Count 5.15 10^6/uL (4.1-5.3); Red Cell Distribution Width 11.4 % (12.1-15.1); White Blood Count 7.8 10^3/uL (4.0-10.0)
[2021-03-10] MEDS: iohexol 350 mg/mL 100 mL Btl IV (02:45)
[2021-03-10 02:57] LABS: Troponin(5th) Baseline 6 ng/L (0-15)
--- NOTE | 2021-03-10 04:07 | ECG_ITS ---
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 Measurements Intervals [place] Rate: 67 P: 54 [place]: 152 QRS: -27 QRSD: 105 T: 55 QT: 389 QTc: 413 Interpretive Statements SINUS RHYTHM BORDERLINE LEFT AXIS DEVIATION [QRS AXIS < -20] Compared to ECG 03/10/2021 02:09:52 No significant changes Electronically Signed On 03-10-2021 17:26:40 INTERIOR ASSEMBLIES INSTALLER by Karla Michel M.D. [id number]
[2021-03-10 05:14] LABS: Alanine Aminotransferase 25 U/L (0-41); Albumin Level 4.3 g/dL (3.5-5.2); Alkaline Phosphatase 80 IU/L (40-130); Blood Urea Nitrogen 13 mg/dL (6-20); Calcium 8.7 mg/dL (8.5-10.5); Carbon Dioxide 19 mmol/L (22-29); Chloride 101 mmol/L (98-107); Globulin 1.8 g/dL (1.3-4.6); Glomerular Filtration Rate 87.3 mL/min (90-130); Glucose 124 mg/dL (65-115); Osmolality Calculated 284 mOsm/kg (285-295); Sodium 136 mmol/L (136-145); Total Bilirubin 0.5 mg/dL (0.15-1.2); Total Protein 6.1 g/dL (6.6-8.7)
[2021-03-10 05:37] LABS: Anion Gap 19.6 (5-19); Aspartate Amino Transferase 19 U/L (0-40); Potassium 3.6 mmol/L (3.5-5.1)
--- NOTE | 2021-03-10 12:30 | DCPLANNER ---
Addendum entered by Alma Delia Santos 04/10/21 10:36: Patient had a follow up appointment scheduled for 03.25.21 with [facility] - patient did attend appointment. Original Note: manager presentation had message to schedule a follow up appointment for patient with [facility]. manager presentation called [facility], spoke with Paola, gave clinic patients information. A follow up appointment was scheduled for Tuesday. March 25, 2021 at 12:[address] Michel. manager presentation called patient and gave patient the appointment information.
== END 2021-03-10 05:29 | disposition home or self-care (01) ==
PROVIDERS: Emergency Provider Emergency Medicine; PCP Nurse Practitioner Family
DX: R42 Dizziness and giddiness (principal); R07.9 Chest pain, unspecified; Z79.82 Long term (current) use of aspirin; I10 Essential (primary) hypertension; F17.220 Nicotine dependence, chewing tobacco, uncomplicated
CPT/HCPCS: 12345; 70496; 70498; 71045; 80053; 84484; 85025; 93005; 99283; J8597; Q9967

== ENCOUNTER → 2021-04-23 11:19 | Outpatient (BNVA) | payer MEDICARE, SELFPAY | PROVIDERS: PCP Nurse Practitioner Family; Visit Provider Nurse Practitioner Family | DX: M25.50 Pain in unspecified joint | CPT/HCPCS: 85651; 86038; 86140; 86431 ==

== ENCOUNTER 2021-05-12 07:26 | Outpatient (CLI) | payer MEDICARE, SELFPAY ==
[2021-05-12 07:37] VITALS: BMI 33.9
--- NOTE | 2021-05-12 07:46 | ECG_ITS ---
[facility] Test Date: 2021-05-12 Pat Name: Andre Conn Department: Room: Gender: Male Informatics Spec: Zoraida Rogers : 1965 Requested By: Tyra Jarquin Order Number: [id number] Megha MD: Karla Michel M.D. Interpretive Statements NAME OF STUDY: LEXISCAN SESTAMIBI STRESS TEST INDICATION: Chest Pain PROCEDURE: At the baseline, the blood pressure was 205/115 mmHg with a heart rate of 60 bpm. The electrocardiogram showed sinus rhythm with left axis deviation. Poor anterior R wave progression. The Lexiscan was infused over a period of 20 seconds. A total of 0.4 milligrams of Lexiscan was infused. The stress phase was continued for a total of 5 minutes. Heart rate at the end of the stress phase was 81 bpm with a blood pressure of 127/88 mmHg. The EKG at the peak infusion revealed sinus rhythm with no significant ST-T wave changes. Sestamibi was injected 20 seconds after the Lexiscan infusion. Blood pressure at the end of the recovery phase was 130/82 mmHg with a heart rate of 64 beats per minute. Patient developed intraprocedural shortness of breath and needed aminophylline administration. CONCLUSION: 1. No significant EKG changes with the LexiScan infusion. 2. No LexiScan induced chest pain or cardiac arrhythmia. 3. Normal blood pressure and heart rate response. 4. Sestamibi/sestamibi perfusion scan pending; see separate report. Electronically Signed On 05-12-2021 16:39:21 CDT by Karla Michel M.D. [id number]
--- NOTE | 2021-05-12 07:46 | NMCV_ITS ---
NM hawk perf SPECT r/s* [id number] Andre Conn Age: 55 Gender: M : 1965 Exam Date: 05/12/2021 07:46 Ordering Phys: Tyra Jarquin MD ([email or web address]) Technologist: CATALINA Gaspar Exam Location: [facility] Indications: CHEST PAIN STRESS TEST Please [facility] for full findings IMAGE PROTOCOL Rest/Stress 1 Lexiscan Day Radiopharmaceutical Dose (mCi) Administration Site Administered by Rest: Tc-99m 10.9 IV CATALINA Braxton Sestamibi Stress:Tc-99m 32.4 IV CATALINA Gaspar Sestamijose armando Rest: 12-May-2021 60 Discovery 630 Stress: 12-May-2021 30 Discovery 630 0.4mg Lexiscan. Images obtained in supine and prone position. SPECT RESULTS Technical Quality: Excellent Raw Data Analysis: Normal Image Corrections: No attenuation or motion correction applied Summed Stress Score: 3 Summed Rest Score: 1 Summed Difference Score: 2 PERFUSION FINDINGS There is was a small area of decreases uptake in the mid inferolateral and apical lateral region. Some reversibility was noted in the mid inferolateral region. FUNCTIONAL RESULTS (calculated via Gated SPECT) Stress Image LV EF (%): 74 Stress EDV (mL):101 TID: 0.8 Stress ESV (mL):26 FUNCTIONAL FINDINGS: Segmental wall motion analysis revealing no gross wall motion abnormalities IMPRESSIONS 1. Myocardial perfusion imaging revealing small area of decreased tracer uptake in the inferolateral and apical lateral regions with some reversibility, suggestive of myocardial scarring with ischemia in the distribution of the left circumflex artery 2. Normal LV ejection fraction of 74% 3. LV wall motion analysis revealing no gross wall motion normalities. 4. Normal LV volume No similar previous studies are available for comparison Dr Tyra Jarquin MD [facility] (Electronically Signed) Final Date: 12 May 2021 14:26 S
[2021-05-12] MEDS: regadenoson 0.4 Mg/5 ml Syringe IVP (09:23)
[2021-05-12 09:44] VITALS: BP 136/86; PULSE 84
[2021-05-12] MEDS: aminophylline 25 mg/mL SDV 10 mL IVP ×2 (09:50→09:52)
== END 2021-05-12 07:27 | disposition home or self-care (01) ==
PROVIDERS: PCP Nurse Practitioner Family; Visit Provider Internal Medicine Cardiovascular Disease
DX: R07.9 Chest pain, unspecified (principal)
CPT/HCPCS: 78452; 93017; A9500; J0280; J2785

== ENCOUNTER 2021-05-12 12:49 | Observation (INO) | payer MEDICARE, SELFPAY ==
[2021-05-12] VITALS (8 sets, daily range): BP systolic 117–162; BP diastolic 02–94; PULSE 62–100; RESP 18–22; TEMP 36.3–36.6; O2SAT 93–100; BMI 32.3
--- NOTE | 2021-05-12 13:51 | ECG_ITS ---
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 Measurements Intervals [place] Rate: 63 P: 46 ME: 147 QRS: -33 QRSD: 97 T: 40 QT: 378 QTc: 388 Interpretive Statements SINUS RHYTHM LEFT AXIS DEVIATION [QRS AXIS < -30] PATTERN CONSISTENT WITH PULMONARY DISEASE Compared to ECG 03/10/2021 04:09:58 No significant changes Electronically Signed On 05-13-2021 17:01:31 CDT by Ced Espinoza M.D. [id number]
--- NOTE | 2021-05-12 13:51 | XR_ITS ---
WS: [id number] Exam: XR chest 1V portable [id number] Date/Time of Exam: 05/12/2021 1:51 PM Reason For Exam: chest pain Comparison 03/10/2021. The lungs are fully inflated and clear. Normal cardiomediastinal silhouette. A neurostimulator is not ed with the leads extending into the thoracic spinal canal. Bony structures are intact. No change. XR/XR chest 1V portable [id number] IMPRESSION: 1. No acute cardiopulmonary finding.
--- NOTE | 2021-05-12 15:32 | W.ED.GENADLT ---
HPI - General Adult General: Chief complaint: Chest Pain Stated complaint: CHEST TIGHTNESS POST STRESS TEST Time Seen by Provider: 05/12/21 15:10 History of Present Illness: Patient is a 55-year-old male with history of smoking, hypertension who initially was scheduled for outpatient stress test earlier today. Patient underwent a stress test from 7 30-10 30 this morning. Around 12:00, patient began developing significant chest pressure, diaphoresis and nausea. Patient says that there is radiation to the left arm. The chest pain is described as pressure-like lasting for 10 to 15 minutes at a time not relieved. Patient then came to the emergency room for further evaluation. Patient denies any pleuritic chest pain, sharp stabbing chest pain, leg swelling, recent immobilization or travel. Patient has no prior history of VTE or aneurysms. Onset:12:00pm Duration:ongoing Location:home Severity:moderate Associated symptoms: Reports chest pain (+chest pressure); Deny dyspnea, nausea, rash, palpitations or vomiting Review of Systems Const: Denies: fever(s) or chills Eyes: Denies: change in vision ENMT: Denies: mouth pain Card: Reports: chest pain (+chest pressure); Denies: palpitations Resp: Denies: dyspnea or non-productive cough GI: Denies: abdominal pain, nausea, vomiting or diarrhea : Denies: dysuria Musc: Denies: extremity pain Skin/Breast: Denies: rash or new lesions Neuro: Denies: weakness in extremities Psych: Reports: other (Normal mood) Stepan/Lymph: Denies: easy bruising PFSH ED PFSH: Medical History Hypertension Left knee DJD Osteoarthritis Tobacco chew use Surgical History H/O foot surgery History of back surgery Family History Other Diabetes Stroke Social History Smoking and tobacco status: never smoked Physical Exam Const: COMMON NORMALS: alert HENMT: COMMON NORMALS: atraumatic HEAD & SCALP: atraumatic MOUTH: moist mucous membranes not abnormal Eye: COMMON NORMALS: EOMs intact bilaterally and conjunctivae normal CONJUNCTIVA: Yes conjunctivae normal Neck/C-Spine: COMMON NORMALS: full ROM and supple Resp: COMMON NORMALS: normal respiratory effort and clear to auscultation bilaterally AUSCULTATION: clear to auscultation bilaterally Cardio: COMMON NORMALS: regular rate RATE: regular rate OTHER: 2+ radial pulse bilaterally GI: COMMON NORMALS: Soft to palpation and non-tender PALPATION: Yes Soft to palpation Extremity: COMMON NORMALS: full ROM Neuro: SENSORIUM/ORIENTATION: Yes alert MOTOR EXAM: No Abnormal motor strength present and Other motor observations present (no focal motor deficits) Psych: COMMON NORMALS: speech normal SPEECH: Yes normal speech MOOD & AFFECT: Yes euthymic mood Course Vital Signs: Vital signs: Vital Signs Temperature 97.4 F L 05/12/21 12:56 Pulse Rate 67 05/12/21 16:53 Respiratory Rate 18 05/12/21 16:53 Blood Pressure 146/94 05/12/21 16:53 Pulse Oximetry 99 05/12/21 16:53 MDM - General Adult Medical Decision Making Patient is a 55-year-old male with history of smoking pipe patient presents emergency room with complaints of chest pain on physical exam, patient is hemodynamically stable noted to be mildly hypertensive. 2+ radial pulse bilaterally, lungs appear to be clear. EKG not showing signs of STEMI. Troponin x 1 wnl. She received nitro and aspirin with improvement in chest pressure. I reviewed the stress test with Dr. Espinoza reports that there may be mild ischemic findings in the circumflex complex artery. Dr. Martinez recommended further observation and serial troponin. Patient says the pain improved with nitro still has 3 out of 10 pain currently. Disposition: admission Lab Data : 05/12/21 15:49 05/12/21 15:49 Radiology Impressions Chest X-Ray 05/12/21 13:51 IMPRESSION: 1. No acute cardiopulmonary finding. Laboratory Results WBC 8.4 10^3/uL (4.0-10.0) 05/12/21 15:49 RBC 5.31 10^6/uL (4.1-5.3) H 05/12/21 15:49 Hgb 16.0 g/dL (11.7-16.6) 05/12/21 15:49 Hct 47.4 % (42.0-52.0) 05/12/21 15:49 MCV 89.3 fl (80-94) 05/12/21 15:49 MCH 30.1 pg (28.0-34.0) 05/12/21 15:49 MCHC 33.8 g/dL (30.0-36.0) 05/12/21 15:49 RDW 11.9 % (12.1-15.1) L 05/12/21 15:49 Plt Count 208 10^3/cmm (130-400) 05/12/21 15:49 MPV 10.0 fL (7.4-10.4) 05/12/21 15:49 Neut % (Auto) 81.0 % 05/12/21 15:49 Lymph % (Auto) 14.1 % 05/12/21 15:49 [place] % (Auto) 3.9 % 05/12/21 15:49 Eos % (Auto) 0.1 % 05/12/21 15:49 Baso % (Auto) 0.5 % 05/12/21 15:49 Neut # (Auto) 6.83 10^3/uL (1.8-7.7) 05/12/21 15:49 Lymph # (Auto) 1.2 10^3/uL (0.8-4.8) 05/12/21 15:49 [place] # (Auto) 0.3 10^3/uL (0.2-0.9) 05/12/21 15:49 Eos # (Auto) 0.0 10^3/uL (0.0-0.8) 05/12/21 15:49 Baso # (Auto) 0.0 10^3/uL (0.0-0.1) 05/12/21 15:49 Nucleated RBC % (auto) 0 % 05/12/21 15:49 Nucleated RBCs # 0.0 /100WBC 05/12/21 15:49 Sodium 139 mmol/L (136-145) 05/12/21 15:49 Potassium 3.9 mmol/L (3.5-5.1) 05/12/21 15:49 Chloride 106 mmol/L (98-107) 05/12/21 15:49 Carbon Dioxide 22 mmol/L (22-29) 05/12/21 15:49 Anion Gap 14.9 (5-19) 05/12/21 15:49 BUN 10 mg/dL (6-20) 05/12/21 15:49 Creatinine 0.9 mg/dL (0.7-1.2) 05/12/21 15:49 GFR Calculation 87.3 mL/min (90-130) L 05/12/21 15:49 Glucose 113 mg/dL (65-115) 05/12/21 15:49 Calculated Osmolality 288 mOsm/kg (285-295) 05/12/21 15:49 Calcium 9.8 mg/dL (8.5-10.5) 05/12/21 15:49 Troponin T Baseline 6 ng/L (0-15) 05/12/21 15:49 Imaging Data Other Imaging: Radiologist's impression: [facility] [address] [place] [address] XRay Report Signed Patient: Andre Conn Unit #: [id number] : 1965 Age/Sex: 55 / M ADM Date: 05/12/21 Loc: ER Room/Bed: Attending Dr: Ordering Provider/Ordering MD: Celina Mcintosh MD Date of Service: 05/12/21 Procedure(s): XR chest 1V portable [id number] Accession Number(s): [id number] Report Number: [id number] WS: [id number] Exam: XR chest 1V portable [id number] Date/Time of Exam: 05/12/2021 1:51 PM Reason For Exam: chest pain Comparison 03/10/2021. The lungs are fully inflated and clear. Normal cardiomediastinal silhouette. A neurostimulator is noted with the leads extending into the thoracic spinal canal. Bony structures are intact. No change. XR/XR chest 1V portable [id number] IMPRESSION: 1. No acute cardiopulmonary finding. ? Dictated By: Britton Black DO Signed By: Britton Black DO Signed Date/Time: 05/12/21 1415 DD/ 1414 Discharge Plan Discharge Patient Disposition: Admitted As Inpatient Clinical Impression: Chest pain Condition: Stable Coding Level of Care Code ED Computer Game Tester for Chg Fwd Exam Comprehensive
--- NOTE | 2021-05-12 15:51 | ECG_ITS ---
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 Measurements Intervals [place] Rate: 60 P: 46 NC: 122 QRS: -35 QRSD: 97 T: 38 QT: 379 QTc: 380 Interpretive Statements SINUS RHYTHM LEFT AXIS DEVIATION [QRS AXIS < -30] PATTERN CONSISTENT WITH PULMONARY DISEASE Compared to ECG 05/12/2021 13:06:54 No significant changes Electronically Signed On 05-13-2021 17:15:23 CDT by Ced Espinoza M.D. [id number]
[2021-05-12] MEDS: aspirin 325 mg Tablet PO (15:53)
[2021-05-12] MEDS: morphine 4 mg/mL SDV 1 mL IVP (15:54)
[2021-05-12 16:05] LABS: Basophils % 0.5 %; Eosinophils % 0.1 %; Hematocrit 47.4 % (42.0-52.0); Lymphocytes # 1.2 10^3/uL (0.8-4.8); Lymphocytes % 14.1 %; Mean Corpuscular HGB Conc 33.8 g/dL (30.0-36.0); Mean Corpuscular Hemoglobin 30.1 pg (28.0-34.0); Mean Corpuscular Volume 89.3 fl (80-94); Monocytes # 0.3 10^3/uL (0.2-0.9); Monocytes % 3.9 %; Neutrophils # 6.83 10^3/uL (1.8-7.7); Nucleated Red Blood Cells % 0 %; Platelet Count 208 10^3/cmm (130-400); Red Blood Count 5.31 10^6/uL (4.1-5.3); Red Cell Distribution Width 11.9 % (12.1-15.1); White Blood Count 8.4 10^3/uL (4.0-10.0)
--- NOTE | 2021-05-12 16:08 | PC.NURSE ---
steam trap man on patient.
[2021-05-12 16:26] LABS: Troponin(5th) Baseline 6 ng/L (0-15)
[2021-05-12 16:27] LABS: Blood Urea Nitrogen 10 mg/dL (6-20); Calcium 9.8 mg/dL (8.5-10.5); Carbon Dioxide 22 mmol/L (22-29); Chloride 106 mmol/L (98-107); Glomerular Filtration Rate 87.3 mL/min (90-130); Glucose 113 mg/dL (65-115); Osmolality Calculated 288 mOsm/kg (285-295); Sodium 139 mmol/L (136-145)
[2021-05-12 16:33] LABS: Anion Gap 14.9 (5-19); Potassium 3.9 mmol/L (3.5-5.1)
[2021-05-12] MEDS: nitroglycerin 0.4 mg sublingual Tablet SUBLINGUAL (16:50)
[2021-05-12] MEDS: nicotine 21 mg Patch 1 PATCH TRANSDERMA (16:54)
[2021-05-12 18:41] LABS: Troponin 5 2HR Delta 0 ABS# (0-10)
--- NOTE | 2021-05-12 19:51 | ECG_ITS ---
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 Measurements Intervals [place] Rate: 61 P: 31 IL: 143 QRS: 31 QRSD: 101 T: 30 QT: 374 QTc: 377 Interpretive Statements SINUS RHYTHM Compared to ECG 05/12/2021 16:44:22 Left-axis deviation no longer present Electronically Signed On 05-13-2021 17:16:16 CDT by Ced Espinoza M.D. [email or web address] medical [email or web address].[employer] [email or web address]/store/[id number]
[2021-05-12] MEDS: acetaminophen 325 mg Tablet 650 MG PO (20:04)
--- NOTE | 2021-05-12 21:12 | PM.HP ---
Providers/Chief Complaint Admitting Physician: Jessica Rodriguez MD Primary Care Provider: CORNEL Gregory Chief Complaint: CHEST TIGHTNESS POST STRESS TEST History of Present Illness Andre Conn is a 55 year old male w/ h/o HTN, OA, smoker came to the ED c/o Lt sided Chest Pain today. Pt had a cardiac stress test today and 2 hrs after the test he experienced severe pressure like lt sided CP radiating to his lt arm, associated w/ SOB, sweating, nausea, lightheadedness. He came to the ED and was given some NTG but had mild releif. He received morphine and this seemed to have helped. Pt states that he has been having off and on almost daily lt sided CP w/ associated SOB, during physical exertion for 1m. He consulted his insurance adviser who had ordered today's stress test.Pt is being admitted for further evaluation of his [place] Pain. Review of Systems Narrative: Const:?? Denies: fever(s) o r chills Eyes:?? Denies: change in vision ENMT:?? Denies: mouth pain Card:?? Reports: chest mely n (+chest pressure ); Denies: palpita tions Resp:?? Denies: dyspnea or non-productive co ugh GI:?? Denies: abdominal pain, nausea, vomi ting or diarrhea :?? Denies: dysuria Musc:?? Denies: extremity pain Skin/Breast:?? Denies: rash or ne w lesions Neuro:?? Denies: weakness i n extremities Psych:?? Reports: other (No rmal mood) Stepan/Lymph:?? Denies: easy bruis ing Medications/Allergies Home Medications Medication Instructions Recorded Confirmed Last Taken Type HINGED KNEE BRACE #1 ea NS 08/15/19 05/12/21 Unknown Rx aspirin 81 mg tablet,delayed 81 mg PO DAILY #30 tab 02/27/21 05/12/21 05/12/21 Rx release meclizine 50 mg tablet (Antivert) 50 mg PO BID PRN #20 tab 03/10/21 05/12/21 Unknown Rx coenzyme Q10 50 mg capsule (Co 50 mg PO DAILY 03/25/21 05/12/21 05/11/21 History Q-10) isosorbide mononitrate 30 mg 15 mg PO DAILY #45 tab 03/25/21 05/12/21 Unknown Rx tablet,extended release 24 hr lisinopril 5 mg tablet 5 mg PO DAILY #90 tab 03/30/21 05/12/21 05/11/21 Rx diphenhydramine HCl 50 mg capsule 50 mg PO BEDTIME 05/12/21 05/12/21 05/11/21 History indomethacin 25 mg capsule 25 mg PO BID PRN 05/12/21 05/12/21 Unknown History multivitamin 1 tab PO DAILY 05/12/21 05/12/21 05/11/21 History trazodone 50 mg tablet 50 mg PO BEDTIME 05/12/21 05/12/21 05/11/21 History Allergies Allergy/AdvReac Type Severity Reaction Status Date / Time Penicillins Allergy Mild ALGY-Rash Verified 05/12/21 13:02 vancomycin Allergy Mild ALGY-Redness Verified 05/12/21 13:02 of Skin PFSH Acute PFSH: Medical History Hypertension Left knee DJD Osteoarthritis Tobacco chew use Surgical History H/O foot surgery History of back surgery Family History Other Diabetes Stroke Social History Smoking and tobacco status: never smoked Vitals/I&O/Wt Last Vital Signs Temp 97.4 F L 05/12/21 12:56 Pulse 67 05/12/21 16:53 Resp 18 05/12/21 16:53 BP 146/94 05/12/21 16:53 Pulse Ox 99 05/12/21 16:53 Weight last 48 hrs Weight 90.718 kg Physical Exam Narrative: Const:?? COMMON NORMALS: al ert HENMT:?? COMMON NORMALS: at raumatic? HEAD & S CALP: atraumatic? MOUTH: moist mucou s membranes not ab normal Eye:?? COMMON NORMALS: EO Ms intact bilatera lly and conjunctiv ae normal? CONJUNC TIVA: Yes conjunct ivae normal Neck/C-Spine:?? COMMON NORMALS: fu ll ROM and supple Resp:?? COMMON NORMALS: no rmal respiratory e ffort and clear to auscultation bila terally? AUSCULTAT ION: clear to ausc ultation bilateral ly Cardio:?? COMMON NORMALS: re gular rate? RATE: regular rate? OTHE R: 2+ radial puls e bilaterally GI:?? COMMON NORMALS: So ft to palpation an d non-tender? PALP ATION: Yes Soft to palpation Extremity:?? COMMON NORMALS: fu ll ROM Neuro:?? SENSORIUM/ORIENTAT ION: Yes alert? MO TOR EXAM: No Abnor mal motor strength present and Other motor observation s present (no foca l motor deficits) Psych:?? COMMON NORMALS: sp eech normal? SPEEC H: Yes normal spee ch? MOOD & AFFECT: Yes euthymic mood Data : 05/12/21 15:49 05/12/21 21:44 A&P Assessment and plan (1) Chest pain: Daily CP for 1m unlikely to be cardiac but will r/o ACS Status: Acute (2) Tobacco chew use: Daily smoker Status: Acute (3) Hypertension: stable Status: Acute (4) Osteoarthritis: stable Status: Acute Qualifiers: Osteoarthritis location: hand Osteoarthritis type: unspecified Laterality: bilateral Qualified Code(s): M19.041 - Primary osteoarthritis, right hand; M19.042 - Primary osteoarthritis, left hand Plan Resume pt's home meds Gloria x3 ECG F/U Stress Test result ASA, Morphine, NTG DVT Prophylaxis w/Lovenox Attestations Medical Necessity Statement*: Pt with h/o HTN, smoker, obesity coming in w/ chest pain has moderate risk factor for CAD. His CP needs further evaluation and management. Will need hospitalization to manage his CP Time Spent in Patient Care: 55 min Coding Level of Care Code Acute Anesthesiologist/Physician for Chg Fwd Diagnoses Chest pain R07.9 Tobacco chew use Z72.0 Hypertension I10 Osteoarthritis M19.041; M19.042 Osteoarthritis location: hand Osteoarthritis type: unspecified Laterality: bilateral
[2021-05-12] MEDS: morphine 4 mg/mL SDV 1 mL 2 MG IVP (21:36)
[2021-05-12] MEDS: enoxaparin 40 mg/0.4 mL Syringe SUBCUT (21:38)
[2021-05-12] MEDS: trazodone 50 mg Tablet PO (21:38)
[2021-05-12 22:15] LABS: Anion Gap 14.7 (5-19); Blood Urea Nitrogen 10 mg/dL (6-20); Calcium 9.7 mg/dL (8.5-10.5); Carbon Dioxide 24 mmol/L (22-29); Chloride 105 mmol/L (98-107); Glomerular Filtration Rate 87.3 mL/min (90-130); Glucose 134 mg/dL (65-115); Osmolality Calculated 291 mOsm/kg (285-295); Potassium 3.7 mmol/L (3.5-5.1); Sodium 140 mmol/L (136-145)
[2021-05-12 22:33] LABS: Troponin 5 6HR Delta 0 ng/L (0-12)
--- NOTE | 2021-05-12 22:41 | PC.NURSE ---
received call from Dr. Rodriguez. AND ordered by mistake by Dr. Rodriguez. Orders received to change code status to Full Code.
[2021-05-12] MEDS: ibuprofen 200 mg Tablet 400 MG PO (22:47)
[2021-05-13 03:39] VITALS: BP 95/56; PULSE 57; RESP 15; TEMP 35.9; O2SAT 97
[2021-05-13 03:49] LABS: Thyroid Stimulating Hormone 2.01 uIU/mL (0.27-4.20)
--- NOTE | 2021-05-13 04:22 | PC.NURSE ---
pt rested quietly throughout shift. PRN pain medication given. VSS. pt repositioned q2. hourly rounding done. all needs met.
[2021-05-13 05:21] VITALS: PULSE 49
[2021-05-13 07:27] VITALS: BP 98/58; PULSE 50; RESP 16; TEMP 36.3; O2SAT 95
[2021-05-13 07:56] VITALS: PULSE 63; RESP 16; O2SAT 96
[2021-05-13] MEDS: isosorbide mononitrate ER 30 mg Tablet 15 MG PO (08:28)
[2021-05-13] MEDS: lisinopril 5 mg Tablet PO (08:28)
[2021-05-13] MEDS: aspirin 81 mg EC Tablet PO (08:28)
[2021-05-13] MEDS: pantoprazole DR 40 mg Tablet PO (08:28)
[2021-05-13] MEDS: ALPRAZolam 0.5 mg Tablet 0.25 MG PO (09:56)
[2021-05-13 11:14] VITALS: BP 122/82; PULSE 69; RESP 17; TEMP 36.6; O2SAT 98
--- NOTE | 2021-05-13 11:49 | PC.CHAP ---
Pastoral Care Encounter/Spiritual Assessment Type of Contact [] Declined actuarial intern visit [] Patient/Family/Request visit [] Outpatient visit [] Follow-up visit [] Physician referral [] Code/Alert [x] Routine visit [] Staff referral [] Actively dying [] Patient sleeping [] Family support [] [] Out of room [] Palliative care [] [x] Receiving care in room [] Pre-surgical visit [] Trauma [] Long length of stay [] ICU visit [] Other: Relational/Emotional Strength [] Patient feels connected with others/family/visitors/staff [] Distress [] Loneliness/isolation [] Abandonment Spirituality of Patient [] Person of Kell [] Attends Congregation of their Kell [] Believes in Prayer [] Reads Bible or Scientologist materials [] There are Spiritual issues to be addressed Insurance Sales Associate Interventions [x] Prayer [] Active listening [] Non-anxious presence [] Spiritual/emotional support [] Crisis/trauma care [] Spiritual counseling [] Bereavement support [] Provided bereavement packet [] Provided Bible/devotional materials [] Provided toy/stuffed animal, coloring book to patient or family member [] Provided Communion [] Anointing/[place] [] Salvation [x] Completed spiritual assessment [] Other: Impact on Illness or Injury [] Angry [] Fearful [] Anxious [] Often cries [] Exhaustion [] Unable to work [] Unable to attend baptism [] Unable to walk/stand [] Unable to read [] Unable to drive [] Unable to eat/drink [] Unable to sleep [] Unable to be with family [] Patient intubated [] Other: Summary Time spent with patient
[2021-05-13 11:58] LABS: Glucose Point of Care 117 mg/dL (70-110)
--- NOTE | 2021-05-13 12:10 | PC.NURSE ---
0930 pt c/o chest pressure, BP 140/86, pt noted to be anxious, reported to Dr. Diggs. order for xanax received and given.
--- NOTE | 2021-05-13 13:35 | PM.DCS ---
Discharge Providers Date of Admission: 05/12/21 20:45 Date of Discharge: May 13, 2021 Attending Provider at Admission: Jessica Rodriguez MD Attending Provider at Discharge: Jessica Rodriguez MD Primary Care Provider: CORNEL Gregory Diagnoses at Discharge Discharge Diagnosis (1) Chest pain: Status: Acute (2) Tobacco chew use: Status: Acute (3) Hypertension: Status: Acute (4) Osteoarthritis: Status: Acute Qualifiers: Laterality: bilateral Osteoarthritis location: hand Osteoarthritis type: unspecified Qualified Code(s): M19.041 - Primary osteoarthritis, right hand; M19.042 - Primary osteoarthritis, left hand Reason for Visit Reason for Visit: CHEST TIGHTNESS POST STRESS TEST Hospital Course Hospital Course Andre Conn is a 55 year old male w/ h/o HTN, OA, smoker came to the ED c/o Lt sided Chest Pain today. Pt had a cardiac stress test today and 2 hrs after the test he experienced severe pressure like lt sided CP radiating to his lt arm, associated w/ SOB, sweating, nausea, lightheadedness. He came to the ED and was given some NTG but had mild releif. He received morphine and this seemed to have helped. Pt states that he has been having off and on almost daily lt sided CP w/ associated SOB, during physical exertion for 1m. He consulted his gallery assistant who had ordered today's stress test.Pt is being admitted for further evaluation of his Conrado Pain.? Ptwas admitted to the [facility]. He was r/o for ACS w/ negative Gloria and cardiac stress test done pre-admission was basically normal. His CP was very likely non cardiac, possibly GERD, Thoracic degenerative Disc dis, Anxiety Dis. He had CP here but for shorter period. He will f/u w/ his gallery assistant on d/c Physical Exam Narrative: NAD CVS S1S2, RRR, Mur (-) RS: CTA Abd soft, NT, BS+ Edema (-) PETROLEUM SAMPLER A&Ox4 Discharge Data Studies Completed and Pending Completed Studies During Hospitalization Category Date Time Status XR chest 1V portable [id number] Urgent Exams 05/12/21 13:51 Completed Radiology Impressions Chest X-Ray 05/12/21 13:51 IMPRESSION: 1. No acute cardiopulmonary finding. Laboratory Results WBC 8.4 10^3/uL (4.0-10.0) 05/12/21 15:49 RBC 5.31 10^6/uL (4.1-5.3) H 05/12/21 15:49 Hgb 16.0 g/dL (11.7-16.6) 05/12/21 15:49 Hct 47.4 % (42.0-52.0) 05/12/21 15:49 MCV 89.3 fl (80-94) 05/12/21 15:49 MCH 30.1 pg (28.0-34.0) 05/12/21 15:49 MCHC 33.8 g/dL (30.0-36.0) 05/12/21 15:49 RDW 11.9 % (12.1-15.1) L 05/12/21 15:49 Plt Count 208 10^3/cmm (130-400) 05/12/21 15:49 MPV 10.0 fL (7.4-10.4) 05/12/21 15:49 Neut % (Auto) 81.0 % 05/12/21 15:49 Lymph % (Auto) 14.1 % 05/12/21 15:49 [place] % (Auto) 3.9 % 05/12/21 15:49 Eos % (Auto) 0.1 % 05/12/21 15:49 Baso % (Auto) 0.5 % 05/12/21 15:49 Neut # (Auto) 6.83 10^3/uL (1.8-7.7) 05/12/21 15:49 Lymph # (Auto) 1.2 10^3/uL (0.8-4.8) 05/12/21 15:49 [place] # (Auto) 0.3 10^3/uL (0.2-0.9) 05/12/21 15:49 Eos # (Auto) 0.0 10^3/uL (0.0-0.8) 05/12/21 15:49 Baso # (Auto) 0.0 10^3/uL (0.0-0.1) 05/12/21 15:49 Nucleated RBC % (auto) 0 % 05/12/21 15:49 Nucleated RBCs # 0.0 /100WBC 05/12/21 15:49 Sodium 140 mmol/L (136-145) 05/12/21 21:44 Potassium 3.7 mmol/L (3.5-5.1) 05/12/21 21:44 Chloride 105 mmol/L (98-107) 05/12/21 21:44 Carbon Dioxide 24 mmol/L (22-29) 05/12/21 21:44 Anion Gap 14.7 (5-19) 05/12/21 21:44 BUN 10 mg/dL (6-20) 05/12/21 21:44 Creatinine 0.9 mg/dL (0.7-1.2) 05/12/21 21:44 GFR Calculation 87.3 mL/min (90-130) L 05/12/21 21:44 Glucose 134 mg/dL (65-115) H 05/12/21 21:44 POC Glucose 117 mg/dL (70-110) H 05/13/21 11:53 Calculated Osmolality 291 mOsm/kg (285-295) 05/12/21 21:44 Calcium 9.7 mg/dL (8.5-10.5) 05/12/21 21:44 Magnesium 2.0 mg/dL (1.7-2.3) 05/12/21 21:44 Troponin T Baseline 6 ng/L (0-15) 05/12/21 15:49 Troponin T 120 Minute 6.00 ng/L (0-15) 05/12/21 17:42 Delta Troponin T 0 ABS# (0-10) 05/12/21 17:42 Troponin T Hi Sens 6Hr 6.00 ng/L (0-15) 05/12/21 21:44 Troponin T Hi Sens 6Hr Delta 0 ng/L (0-12) 05/12/21 21:44 TSH 2.01 uIU/mL (0.27-4.20) 05/13/21 02:48 Vitals Last Vital Signs Temp 97.8 F 05/13/21 11:14 Pulse 69 05/13/21 11:14 Resp 17 05/13/21 11:14 BP 122/82 05/13/21 11:14 Pulse Ox 98 05/13/21 11:14 Discharge Plan Discharge Patient Disposition: Home Condition: Stable Prescriptions: New pantoprazole 40 mg Tablet,Delayed Release (Dr/Ec) 40 mg PO DAILY 30 Days 0RF Continued coenzyme Q10 [Co Q-10] 50 mg capsule 50 mg PO DAILY 0RF isosorbide mononitrate 30 mg tablet extended release 24 hr 15 mg PO DAILY Qty: 45 3RF lisinopril 5 mg tablet 5 mg PO DAILY Qty: 90 1RF aspirin 81 mg tablet,delayed release (DR/EC) 81 mg PO DAILY Qty: 30 0RF Antivert 50 mg tablet 50 mg PO BID PRN (Reason: dizziness) Qty: 20 0RF diphenhydramine HCl 50 mg Capsule 50 mg PO BEDTIME 0RF multivitamin Tablet 1 tab PO DAILY 0RF trazodone 50 mg tablet 50 mg PO BEDTIME 0RF indomethacin 25 mg capsule 25 mg PO BID PRN (Reason: knee pain) 0RF Rx Instructions: administer with food or milk No Action (DME) HINGED KNEE BRACE See Rx Instructions .Route .MEDSUPPLY Qty: 1 0RF Rx Instructions: As directed Discharge Orders: Discharge Order (Routine); Ordered 05/13/21 Ordered By: Jessica Rodriguez Referrals: Eva Holman COMMERCIAL DRIVER'S LICENSE DRIVER [Primary Care Provider] - (Please follow up with Eva UNGER on 05-18-21 at 11:15 am. Please call [phone] if you have any questions or concerns. Thank you. ) Discharge Diet: Cardiac Discharge Activity: Resume usual activity Patient Instructions: Pantoprazole (By mouth), Chest Pain (DC), Opioid Safety Discharge Attestations Time Spent in Discharge Care*: greater than 30 min Quality Metrics Clinical Quality Measures [ No reported AMI, CVA or VTE this stay] Coding Level of Care Code Acute Chg FW DC note Diagnoses Chest pain R07.9 Tobacco chew use Z72.0 Hypertension I10 Osteoarthritis M19.041; M19.042 Laterality: bilateral Osteoarthritis location: hand Osteoarthritis type: unspecified
[2021-05-13 13:55] VITALS: BP 128/70; PULSE 72; O2SAT 97
== END 2021-05-13 14:15 | disposition home or self-care (01) ==
LOC: ER 15:31 → CSU 18:05
PROVIDERS: Admitting Provider Internal Medicine; Emergency Provider Emergency Medicine; PCP Nurse Practitioner Family; Visit Provider Internal Medicine
DX: R07.9 Chest pain, unspecified (principal); F17.220 Nicotine dependence, chewing tobacco, uncomplicated; M19.041 Primary osteoarthritis, right hand; M19.042 Primary osteoarthritis, left hand; I10 Essential (primary) hypertension; Z79.82 Long term (current) use of aspirin; Z82.49 Family history of ischemic heart disease and other diseases of the circulatory system; Z82.3 Family history of stroke
CPT/HCPCS: 36415; 36416; 71045; 78452; 80048; 82962; 83735; 84443; 84484; 85025; 93005; 93017; 96372; 96374; 99285; A9500; G0378; J0280; J1650; J2270; J2785

== ENCOUNTER 2021-05-17 21:03 | Emergency (ER) | payer MEDICARE, SELFPAY ==
[2021-05-17 21:06] VITALS: BP 105/71; PULSE 77; RESP 18; TEMP 36.6; O2SAT 96; BMI 31.3
--- NOTE | 2021-05-17 21:23 | ECG_ITS ---
[facility] Test Date: 2021-05-17 Pat Name: Andre Conn Department: Room: Gender: Male Cytopathology Technologist: Filemon : 1965 Requested By: Asaf Ramirez Order Number: [id number] Megha MD: Ced Espinoza M.D. Measurements Intervals [place] Rate: 67 P: 40 CO: 111 QRS: -39 QRSD: 100 T: 56 QT: 370 QTc: 391 Interpretive Statements SINUS RHYTHM WITH SINUS ARRHYTHMIA WITH SHORT CO INTERVAL LEFT AXIS DEVIATION [QRS AXIS < -30] Compared to ECG 05/12/2021 21:32:40 Short CO interval now present Left-axis deviation now present Electronically Signed On 05-19-2021 9:15:00 CDT by Ced Espinoza M.D. [email or web address]
--- NOTE | 2021-05-17 21:23 | XRR_ITS ---
PROCEDURE INFORMATION: Exam: XR Chest Exam date and time: 05/17/2021 9:49 PM Age: 55 years old Clinical indication: Sternal or substernal pain; Additional info: Cp TECHNIQUE: Imaging protocol: XR of the chest. Views: 1 view. COMPARISON: CR XR chest 1V portable [id number] 05/12/2021 2:07 PM FINDINGS: Tubes, catheters and devices: There are neurostimulator electrodes in the lower thoracic region is seen on the previous examination. Lungs: Visualized portions of the lungs are clear. Pleural spaces: Unremarkable. No pleural effusion. No pneumothorax. Heart/Mediastinum: Heart is within normal limits of size. Bones/joints: Unremarkable. XR/XR chest 1V portable [id number] IMPRESSION: No acute infiltrate.
[2021-05-17 21:29] LABS: Basophils % 0.5 %; Eosinophils % 0.5 %; Hematocrit 46.4 % (42.0-52.0); Hemoglobin 15.9 g/dL (11.7-16.6); Lymphocytes # 2.1 10^3/uL (0.8-4.8); Lymphocytes % 25.9 %; Mean Corpuscular HGB Conc 34.3 g/dL (30.0-36.0); Mean Corpuscular Hemoglobin 29.9 pg (28.0-34.0); Mean Corpuscular Volume 87.4 fl (80-94); Mean Platelet Volume 10.2 fL (7.4-10.4); Monocytes # 0.4 10^3/uL (0.2-0.9); Neutrophils # 5.42 10^3/uL (1.8-7.7); Neutrophils % 67.4 %; Nucleated Red Blood Cells % 0 %; Platelet Count 228 10^3/cmm (130-400); Red Blood Count 5.31 10^6/uL (4.1-5.3); Red Cell Distribution Width 11.7 % (12.1-15.1)
[2021-05-17 21:54] LABS: Troponin(5th) Baseline 7 ng/L (0-15)
[2021-05-17 22:01] LABS: Alanine Aminotransferase 45 U/L (0-41); Albumin Level 4.9 g/dL (3.5-5.2); Alkaline Phosphatase 85 IU/L (40-130); Anion Gap 16.7 (5-19); Aspartate Amino Transferase 24 U/L (0-40); Blood Urea Nitrogen 11 mg/dL (6-20); Calcium 10.2 mg/dL (8.5-10.5); Carbon Dioxide 24 mmol/L (22-29); Chloride 103 mmol/L (98-107); Creatine Phosphokinase 49 U/L (39-308); Globulin 1.8 g/dL (1.3-4.6); Glomerular Filtration Rate 77.3 mL/min (90-130); Glucose 102 mg/dL (65-115); NT Pro B Type Natriuretic Pept 22 pg/mL (0-125); Osmolality Calculated 290 mOsm/kg (285-295); Potassium 3.7 mmol/L (3.5-5.1); Sodium 140 mmol/L (136-145); Total Bilirubin 0.4 mg/dL (0.15-1.2); Total Protein 6.7 g/dL (6.6-8.7)
[2021-05-17] MEDS: LORazepam 2 mg/mL INJ 1 mL 1 MG IVP (22:16)
[2021-05-17] MEDS: morphine 4 mg/mL SDV 1 mL IVP (22:16)
[2021-05-17 23:12] VITALS: BP 105/60; PULSE 68; RESP 16; O2SAT 96
[2021-05-17 23:20] VITALS: BP 107/59; PULSE 69; RESP 23; O2SAT 95
[2021-05-17 23:23] LABS: D Dimer 0.32 ug/mIFEU (0-0.59)
[2021-05-17 23:39] LABS: Troponin 5 2HR 6.59 ng/L (0-15)
[2021-05-17 23:53] VITALS: BP 129/69; PULSE 61; RESP 14; O2SAT 97
--- NOTE | 2021-05-18 00:01 | ED_ITS ---
HPI - Chest Pain General: Chief Complaint: Chest Pain Stated Complaint: cp Time Seen by Provider: 05/17/21 21:20 Source: patient and family History of Present Illness: 55 year old male with multiple visits to the emergency department in the past few weeks regarding chest discomfort. He presents again tonight with chest discomfort. He had taken two nitroglycerin pills at home with some relief but the pain returned. He called EMS, and was given more NTG in route, which seemed to improve his symptoms transiently. He currently complains of central to left sided chest pain. he describes it as a mule sitting on his chest. He is short of breath with the pain. He has mild nausea. Symptoms tonight are similar to his symptoms in the past. He recently had a stress test as an outpatient, and presented to the emergency department later that afternoon with ongoing chest discomfort. He reports that his primary care nurse practitioner told him that something is wrong , and that he needs to follow up with cardiology come up or come to the ER if he has more chest pain. MD complaint: chest pain Pertinent past history: other Onset (ago): hour(s) Timing of current episode: constant Prior episodes: Yes Onset: during rest Pain location: left chest Pain radiation: left arm Quality: heaviness Relieving factors: nitroglycerin Exacerbating factors: nothing Associated symptoms: Reports dyspnea, nausea, palpitations and sense of impending doom; Deny abdominal pain, diaphoresis, fever(s), leg edema, syncope or vomiting Treatment prior to arrival: aspirin and nitroglycerin Review of Systems Const: Denies: fever(s) or diaphoresis Eyes: Denies: blurry vision ENMT: Denies: throat pain Card: Reports: chest pain and palpitations; Denies: syncope Resp: Reports: dyspnea; Denies: productive cough or non-productive cough GI: Reports: nausea; Denies: abdominal pain or vomiting Musc: Denies: neck pain Neuro: Denies: headache(s) Psych: Reports: anxiety (denies) PFSH ED PFSH: Medical History Hypertension Left knee DJD Osteoarthritis Tobacco chew use Surgical History H/O foot surgery History of back surgery Family History Other Diabetes Stroke Social History (Reviewed 05/15/21 @ 16:10 by PB Duff Smoking and tobacco status: never smoked Physical Exam Const: COMMON NORMALS: no acute distress and alert GENERAL APPEARANCE: cooperative, comfortable and well kempt; not ill appearing and not frail appearing HENMT: COMMON NORMALS: normocephalic and atraumatic HEAD & SCALP: normoc ephalic and atraumatic FACE & SINUS: normal facial exam and face symmetric Eye: COMMON NORMALS: Equal, round and reactive pupils present and EOMs intact bilaterally PUPIL: Yes Equal, round and reactive pupils present Neck/C-Spine: COMMON NORMALS: full ROM Chest: COMMONS NORMALS: normal inspection of the chest CHEST: Yes tenderness (left anterior chest wall.) Resp: COMMON NORMALS: normal respiratory effort, No retractions, No use of accessory muscles and clear to auscultation bilaterally AUSCULTATION: clear to auscultation bilaterally Cardio: COMMON NORMALS: regular rate, regular rhythm and Peripheral pulses 2+ throughout RATE: regular rate RHYTHM: regular rhythm PERIPHERAL PULSES: Peripheral pulses 2+ throughout GI: COMMON NORMALS: Normal to inspection, nondistended, normoactive bowel sounds present and Soft to palpation PALPATION: Yes Soft to palpation Extremity: COMMON NORMALS: no pedal edema Neuro: YSABEL COMA SCALE: document GCS findings Ysabel coma scale eye opening: Spontaneous Ysabel coma scale verbal response: Orientated [place] coma scale motor response: Obey commands [place] coma scale total score: 15 SENSO RIUM/ORIENTATION: Yes alert Psych: COMMON NORMALS: mental status grossly normal APPEARANCE: Yes well kempt Course Vital Signs: Vital signs: Vital Signs Temperature 98 F 05/17/21 21:06 Pulse Rate 63 05/18/21 00:11 Respiratory Rate 18 05/18/21 00:11 Blood Pressure 91/56 05/18/21 00:11 Pulse Oximetry 97 05/18/21 00:11 MDM - Chest Pain Medical Decision Making Chest discomfort is somewhat reproducible on exam with palpation. EKG shows a sinus rhythm with a normal axis and no St changes. Trop is negative both at baseline and two hours. D dimer is negative. Chest X ray is normal. I had a long discussion with the patient about causes of chest discomfort, both emergent, and non emergent. Out patient follow up was encouraged. He has seen cardiology, and has a follow up appointment scheduled. We will see if case management can get him in sooner To go over his stress test results, although they seem benign. For now, he will be allowed home, with treatment for costochondritis, as at least some of his symptoms match this diagnosis. Lab Data : 05/17/21 20:40 05/17/21 20:40 Radiology Impressions Chest X-Ray 05/17/21 21:23 IMPRESSION: No acute infiltrate. Laboratory Results WBC 8.0 10^3/uL (4.0-10.0) 05/17/21 20:40 RBC 5.31 10^6/uL (4.1-5.3) H 05/17/21 20:40 Hgb 15.9 g/dL (11.7-16.6) 05/17/21 20:40 Hct 46.4 % (42.0-52.0) 05/17/21 20:40 MCV 87.4 fl (80-94) 05/17/21 20:40 MCH 29.9 pg (28.0-34.0) 05/17/21 20:40 MCHC 34.3 g/dL (30.0-36.0) 05/17/21 20:40 RDW 11.7 % (12.1-15.1) L 05/17/21 20:40 Plt Count 228 10^3/cmm (130-400) 05/17/21 20:40 MPV 10.2 fL (7.4-10.4) 05/17/21 20:40 Neut % (Auto) 67.4 % 05/17/21 20:40 Lymph % (Auto) 25.9 % 05/17/21 20:40 [place] % (Auto) 5.0 % 05/17/21 20:40 Eos % (Auto) 0.5 % 05/17/21 20:40 Baso % (Auto) 0.5 % 05/17/21 20:40 Neut # (Auto) 5.42 10^3/uL (1.8-7.7) 05/17/21 20:40 Lymph # (Auto) 2.1 10^3/uL (0.8-4.8) 05/17/21 20:40 [place] # (Auto) 0.4 10^3/uL (0.2-0.9) 05/17/21 20:40 Eos # (Auto) 0.0 10^3/uL (0.0-0.8) 05/17/21 20:40 Baso # (Auto) 0.0 10^3/uL (0.0-0.1) 05/17/21 20:40 Nucleated RBC % (auto) 0 % 05/17/21 20:40 Nucleated RBCs # 0.0 /100WBC 05/17/21 20:40 D-Dimer 0.32 ug/mIFEU (0-0.59) 05/17/21 22:43 Sodium 140 mmol/L (136-145) 05/17/21 20:40 Potassium 3.7 mmol/L (3.5-5.1) 05/17/21 20:40 Chloride 103 mmol/L (98-107) 05/17/21 20:40 Carbon Dioxide 24 mmol/L (22-29) 05/17/21 20:40 Anion Gap 16.7 (5-19) 05/17/21 20:40 BUN 11 mg/dL (6-20) 05/17/21 20:40 Creatinine 1.0 mg/dL (0.7-1.2) 05/17/21 20:40 GFR Calculation 77.3 mL/min (90-130) L 05/17/21 20:40 Glucose 102 mg/dL (65-115) 05/17/21 20:40 Calculated Osmolality 290 mOsm/kg (285-295) 05/17/21 20:40 Calcium 10.2 mg/dL (8.5-10.5) 05/17/21 20:40 Total Bilirubin 0.4 mg/dL (0.15-1.2) 05/17/21 20:40 AST 24 U/L (0-40) 05/17/21 20:40 ALT 45 U/L (0-41) H 05/17/21 20:40 Alkaline Phosphatase 85 IU/L (40-130) 05/17/21 20:40 Creatine Kinase 49 U/L (39-308) 05/17/21 20:40 Troponin T Baseline 7 ng/L (0-15) 05/17/21 20:40 Troponin T 120 Minute 6.59 ng/L (0-15) 05/17/21 23:00 Delta Troponin T Not Reportable 05/17/21 23:00 NT-Pro-B Natriuret Pep 22 pg/mL (0-125) 05/17/21 20:40 Total Protein 6.7 g/dL (6.6-8.7) 05/17/21 20:40 Albumin 4.9 g/dL (3.5-5.2) 05/17/21 20:40 Globulin 1.8 g/dL (1.3-4.6) 05/17/21 20:40 Discharge Plan Discharge Patient Disposition: Home Clinical Impression: Chest pain Condition: Stable Prescriptions: New Medrol (Ed) 4 mg tablets,dose pack See Rx Instructions .ROUTE .COMPLEX Qty: 21 0RF Rx Instructions: orally per package directions No Action (DME) HINGED KNEE BRACE See Rx Instructions .Route .MEDSUPPLY Qty: 1 0RF Rx Instructions: As directed coenzyme Q10 [Co Q-10] 50 mg capsule 50 mg PO DAILY 0RF alprazolam [Xanax] 0.25 mg tablet 0.25 mg PO BID PRN (Reason: anxiety) 7 Days Qty: 14 0RF isosorbide mononitrate 10 mg tablet 10 mg PO BID Qty: 60 0RF Rx Instructions: give doses 7 hrs apart metoprolol succinate 25 mg tablet extended release 24 hr 12.5 mg PO DAILY Qty: 45 3RF aspirin 81 mg tablet,delayed release (DR/EC) 81 mg PO DAILY Qty: 30 0RF Antivert 50 mg tablet 50 mg PO BID PRN (Reason: dizziness) Qty: 20 0RF diphenhydramine HCl 50 mg Capsule 50 mg PO BEDTIME 0RF multivitamin Tablet 1 tab PO DAILY 0RF trazodone 50 mg tablet 50 mg PO BEDTIME 0RF indomethacin 25 mg capsule 25 mg PO BID PRN (Reason: knee pain) 0RF Rx Instructions: administer with food or milk pantoprazole 40 mg Tablet,Delayed Release (Dr/Ec) 40 mg PO DAILY 30 Days 0RF Discharge Orders: Discharge ED (Routine); Ordered 05/18/21 Ordered By: Asaf Pryor Referrals: Eva Holman FNP [Primary Care Provider] - 4-7 days Karla Michel MD [Physician] - 4-7 days Discharge Diet: Usual diet Discharge Activity: Increase activity as tolerated Patient Instructions: Chest Pain (ED) Activity Restrictions/Additional Instructions: Return for return of or worsening chest pain despite treatment, fever, vomiting, significant shortness of breath, cough, any other concerning symptoms. 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
[2021-05-18 00:11] VITALS: BP 91/56; PULSE 63; RESP 18; O2SAT 97
--- NOTE | 2021-05-18 12:50 | DCPLANNER ---
Addendum entered by Alma Delia Santos 06/24/21 19:40: Patient had a follow up appointment scheduled with heart care - patient did attend appointment. Addendum entered by Alma Delia Santos 05/20/21 14:43: Patient has a follow up appointment scheduled for Wednesday, May 26, 2021 at 1:15 with TRACK SUPERINTENDENT, Jasmyne Olguin at [facility]. disease case manager rn called patient and gave him the appointment information. Original Note: disease case manager rn had message to schedule a follow up appointment for patient with heart care. disease case manager rn sent patients information to the front staff at [facility] [employer] system. Patients information will be printed and reviewed. Clinic will notify case management rn of the appointment information. disease case manager rn will call patient with appointment information.
== END 2021-05-18 00:51 | disposition home or self-care (01) ==
PROVIDERS: Emergency Provider Emergency Medicine; PCP Nurse Practitioner Family
DX: R07.9 Chest pain, unspecified (principal); M94.0 Chondrocostal junction syndrome [Tietze]; F17.220 Nicotine dependence, chewing tobacco, uncomplicated; Z79.82 Long term (current) use of aspirin; Z79.891 Long term (current) use of opiate analgesic
CPT/HCPCS: 71045; 80053; 82550; 83880; 84484; 85025; 85378; 93005; 96374; 96375; 99284; J2060; J2270

== ENCOUNTER → 2021-06-01 15:32 | Outpatient (BNVA) | payer MEDICARE, SELFPAY | PROVIDERS: PCP Nurse Practitioner Family; Visit Provider Internal Medicine Cardiovascular Disease | DX: R94.39 Abnormal result of other cardiovascular function study (principal); R07.9 Chest pain, unspecified; I10 Essential (primary) hypertension; Z82.49 Family history of ischemic heart disease and other diseases of the circulatory system; Z72.0 Tobacco use; F41.9 Anxiety disorder, unspecified; M19.041 Primary osteoarthritis, right hand; M19.042 Primary osteoarthritis, left hand; R06.02 Shortness of breath; Z79.82 Long term (current) use of aspirin | CPT/HCPCS: 99214; 99215 ==

== ENCOUNTER 2021-08-18 21:51 | Inpatient (IN) | payer MEDICARE, SELFPAY ==
[2021-08-18 22:03] VITALS: BP 156/86; PULSE 58; PULSE 82; RESP 19; O2SAT 94
[2021-08-18 22:11] VITALS: BMI 31.1
--- NOTE | 2021-08-18 22:27 | PM.HP ---
Providers/Chief Complaint Admitting Physician: Den Lima Primary Care Provider: CORNEL Gregory Chief Complaint: chest Pain History of Present Illness Pleasant 55-year-old gentleman with known abnormal stress test back in April 2019., With decreased tracer uptake in inferior lateral and apical lateral regions with some reversibility suggestive of myocardial scarring with ischemia in distribution of LCx, has been following with cardiology, with on and off axis of chest pain relieved by nitroglycerin, with plans for additional investigation including coronary angiogram considered, but had to be deferred previously due to number of issues including contrast dye shortage, came in for evaluation to [facility] today due to persistent chest pain since 10 AM this morning, radiating to left arm, left-sided, with some relief from nitroglycerin, to start nitroglycerin drip in ER there. After discussion with cardiology was transferred here for additional assessment including tentative plans for coronary angiography. Started on ACS protocol including Lovenox and MSF. Currently reports still some remaining discomfort in the left side of his chest, while on nitro drip, denies any changes in pain with movement of the arm, torso, inspiration, denies any heartburn, cough or shortness of breath. Reports that he is hungry, requesting something to eat before he is made n.p.o. after midnight. Review of Systems Const: Denies: fever(s), chills, body aches or malaise Eyes: Denies: change in vision, eye discomfort or eye redness ENMT: Denies: throat pain, oral sores or ear or mastoid pain Card: Reports: chest pain; Denies: edema, pre-syncope or dyspnea on exertion Resp: Denies: dyspnea, productive cough, change in phlegm color or hemoptysis GI: Denies: abdominal pain, nausea, vomiting, diarrhea, constipation, hematochezia or melena : Denies: flank pain, difficulty urinating, urinary frequency or hematuria Musc: Denies: back pain, joint swelling or joint redness Skin/Breast: Denies: rash or new lesions Neuro: Denies: headache(s), numbness in extremities, weakness in extremities, dizziness, confusion or seizure-like activity Endo: Denies: polyuria or polydipsia Stepan/Lymph: Denies: easy bleeding or tender lymph nodes All/Imm: Denies: urticaria or tongue swelling Medications/Allergies Home Medications Medication Instructions Recorded Confirmed Last Taken Type HINGED KNEE BRACE #1 ea NS 08/15/19 07/28/21 Unknown Rx coenzyme Q10 50 mg capsule (Co 50 mg PO DAILY 03/25/21 07/28/21 05/11/21 History Q-10) multivitamin 1 tab PO DAILY 05/12/21 07/28/21 05/11/21 History aspirin 325 mg tablet 650 mg PO DAILY tab 06/01/21 07/28/21 Unknown History diphenhydramine HCl 50 mg capsule 50 mg PO BEDTIME PRN 06/01/21 07/28/21 Unknown History pantoprazole 40 mg tablet,delayed 40 mg PO DAILY 90 Days #90 tab 06/05/21 07/28/21 Unknown Rx release cyclobenzaprine 10 mg tablet 10 mg PO TID PRN 10 Days #30 tab 07/17/21 07/28/21 Unknown Rx fluoxetine 10 mg capsule See Rx Instructions .ROUTE 07/17/21 07/28/21 Unknown Rx .COMPLEX #90 cap isosorbide mononitrate 10 mg tablet See Rx Instructions .ROUTE 08/03/21 Unknown Rx .COMPLEX #60 tab lisinopril 10 mg tablet 10 mg PO DAILY #90 tab 08/04/21 Unknown Rx metoprolol succinate 25 mg 25 mg PO DAILY 08/18/21 08/18/21 08/18/21 History tablet,extended release 24 hr Allergies Allergy/AdvReac Type Severity Reaction Status Date / Time Penicillins Allergy Mild ALGY-Rash Verified 07/28/21 14:13 vancomycin Allergy Mild ALGY-Redness Verified 07/28/21 14:13 of Skin PFSH Acute PFSH: Medical History Hypertension Left knee DJD Osteoarthritis Tobacco chew use Surgical History H/O foot surgery History of back surgery Family History Other Diabetes Stroke Social History (Updated 08/18/21 @ 22:28 by Den Lima MD) Smoking and tobacco status: never smoked Alcohol intake: current Alcohol intake frequency: holidays/special occasions only Substance/Drug Use: never Lives independently: Yes Household members: spouse Marital status: Vitals/I&O/Wt Weight last 48 hrs Weight 87.543 kg Physical Exam Narrative: Accompanied by his . Const: COMMON NORMALS: alert GENERAL APPEARANCE: cooperative NUTRITIONAL APPEARANCE: overweight ORIENTATION/CONSCIOUSNESS: Yes awake HENMT: COMMON NORMALS: normocephalic, EAC's normal, Normal external nose present and moist oral mucous membranes HEAD & SCALP: normocephalic NOSE: Normal external nose present EXTERNAL AUDITORY CANAL: EAC's normal Neck/C-Spine: COMMON NORMALS: no meningeal signs Chest: CHEST: Yes Symmetrical chest wall rise Resp: COMMON NORMALS: clear to auscultation bilaterally AUSCULTATION: clear to auscultation bilaterally Cardio: COMMON NORMALS: regular rate, regular rhythm and No murmurs present (Cardio) RATE: regular rate RHYTHM: regular rhythm GI: COMMON NORMALS: Normal to inspection, nondistended, normoactive bowel sounds present, Soft to palpation and non-tender PALPATION: Yes Soft to palpation Extremity: COMMON NORMALS: no pedal edema Neuro: COMMON NORMALS: moves all extremities SENSORIUM/ORIENTATION: Yes alert MENINGEAL SIGNS: Yes no meningeal signs Psych: COMMON NORMALS: mental status grossly normal Skin: COMMON NORMALS: no wounds RASHES: no rashes A&P Assessment and plan (1) Unstable angina: With known abnormal stress test, occasional recurrent and now persistent left-sided chest pain, requiring nitroglycerin drip, with unstable angina, continue ACS protocol. We will also assess TTE. Troponin level itself was normal. We will repeat in the morning. Cardiac monitoring. Cardiology consultation. N.p.o. after midnight. Status: Acute Plan HTN: Continue metoprolol, lisinopril. Currently on nitro drip. Attestations Medical Necessity Statement*: Admission of over 2 midnights is anticipated versus management of unstable angina. Coding Level of Care Code Acute Grizzly Worker for [facility] Fwd Exam Comprehensive Diagnoses Unstable angina I20.0
[2021-08-18] MEDS: atorvastatin 40 mg Tablet PO (23:34)
[2021-08-19] VITALS (30 sets, daily range): BP systolic 113–159; BP diastolic 65–101; PULSE 49–74; RESP 13–26; TEMP -17.7–36.9; O2SAT 91–99
[2021-08-19 03:07] LABS: Basophils # 0.1 10^3/uL (0.0-0.1); Basophils % 0.6 %; Eosinophils # 0.1 10^3/uL (0.0-0.8); Eosinophils % 0.9 %; Hematocrit 43.5 % (42.0-52.0); Hemoglobin 15.7 g/dL (11.7-16.6); Lymphocytes # 2.4 10^3/uL (0.8-4.8); Lymphocytes % 30.9 %; Mean Corpuscular HGB Conc 36.1 g/dL (30.0-36.0); Mean Corpuscular Volume 85.8 fl (80-94); Mean Platelet Volume 9.2 fL (7.4-10.4); Monocytes # 0.5 10^3/uL (0.2-0.9); Monocytes % 6.9 %; Neutrophils # 4.63 10^3/uL (1.8-7.7); Neutrophils % 60.1 %; Nucleated Red Blood Cells % 0 %; Platelet Count 183 10^3/cmm (130-400); Red Blood Count 5.07 10^6/uL (4.1-5.3); Red Cell Distribution Width 12.7 % (12.1-15.1); White Blood Count 7.7 10^3/uL (4.0-10.0)
[2021-08-19 03:32] LABS: Alanine Aminotransferase 29 U/L (0-41); Albumin Level 4.2 g/dL (3.5-5.2); Alkaline Phosphatase 69 IU/L (40-130); Anion Gap 13.6 (5-19); Aspartate Amino Transferase 21 U/L (0-40); Blood Urea Nitrogen 11 mg/dL (6-20); Calcium 9.4 mg/dL (8.5-10.5); Carbon Dioxide 25 mmol/L (22-29); Chloride 105 mmol/L (98-107); Creatinine Clr Calc Pharmacy 95.0149; Globulin 2.3 g/dL (1.3-4.6); Glomerular Filtration Rate 87.3 mL/min (90-130); Glucose 101 mg/dL (65-115); Osmolality Calculated 290 mOsm/kg (285-295); Potassium 3.6 mmol/L (3.5-5.1); Sodium 140 mmol/L (136-145); Total Bilirubin 0.7 mg/dL (0.15-1.2); Total Protein 6.5 g/dL (6.6-8.7)
[2021-08-19 03:33] LABS: Troponin T (5th) Once 6 ng/L (0-15)
[2021-08-19] MEDS: enoxaparin 100 mg/mL Syringe 90 MG SUBCUT (05:53)
[2021-08-19] MEDS: fluoxetine 10 mg Capsule PO (05:53)
--- NOTE | 2021-08-19 07:14 | P.CONIM_ITS ---
Providers/Reason For Consult Consulting Physician/Specialty*: Tom Jenkins MD/Cardiology Reason for Consult*: Unstable angina Requesting Physician: Dr Lima Attending Physician: Den Lima Primary Care Provider: CORNEL Gregory History of Present Illness History of Present Illness Andre Conn is a 55 year old male with past medical history of hypertension who had abnormal stress test back in April showing scarring in left circumflex artery territory with daniel-infarct ischemia. Plan was to have outpatient coronary angiogram however he has been having on and off chest discomfort. This is his second presentation to outside hospital ER with worsening chest pain symptoms. Mostly it is exertional. He says that doing any physical activities makes him have chest pressure radiating to the left arm. Occasional rest pain as well. He was transferred to our hospital for possible coronary angiogram. Gautam lynn is requiring nitro drip at this time. Troponins have not significantly trended up. EKG does not show significant ischemic changes. Review of Systems Const: Denies: fever(s), chills, body aches or malaise Eyes: Denies: change in vision, eye discomfort or eye redness ENMT: Denies: throat pain, oral sores or ear or mastoid pain Card: Reports: chest pain; Denies: edema, pre-syncope or dyspnea on exertion Resp: Denies: dyspnea, productive cough, change in phlegm color or hemoptysis GI: Denies: abdominal pain, nausea, vomiting, diarrhea, constipation, hematochezia or melena : Denies: flank pain, difficulty urinating, urinary frequency or hematuria Musc: Denies: back pain, joint swelling or joint redness Skin/Breast: Denies: rash or new lesions Neuro: Denies: headache(s), numbness in extremities, weakness in extremities, dizziness, confusion or seizure-like activity Endo: Denies: polyuria or polydipsia Stepan/Lymph: Denies: easy bleeding or tender lymph nodes All/Imm: Denies: urticaria or tongue swelling Medications/Allergies Home Medications Medication Instructions Recorded Confirmed Last Taken Type HINGED KNEE BRACE #1 ea NS 08/15/19 08/19/21 Unknown Rx multivitamin 1 tab PO DAILY 05/12/21 08/19/21 05/11/21 History aspirin 325 mg tablet 650 mg PO QAM tab 06/01/21 08/19/21 Unknown History cyclobenzaprine 10 mg tablet 10 mg PO TID PRN 10 Days #30 tab 07/17/21 08/19/21 Unknown Rx lisinopril 10 mg tablet 10 mg PO DAILY #90 tab 08/04/21 08/18/21 Unknown Rx metoprolol succinate 25 mg 12.5 mg PO DAILY 08/18/21 08/19/21 Unknown History tablet,extended release 24 hr coenzyme Q10 100 mg capsule 100 mg PO DAILY 08/19/21 08/19/21 Unknown History (CoQ-10) fluoxetine 10 mg capsule 10 mg PO QAM 08/19/21 08/19/21 Unknown History isosorbide mononitrate 10 mg tablet 10 mg PO BID 08/19/21 08/19/21 Unknown History nitroglycerin 0.4 mg sublingual 0.4 mg SUBLINGUAL Q5M PRN 08/19/21 08/19/21 Unknown History tablet (Nitrostat) pantoprazole 40 mg tablet,delayed 40 mg PO QAM 08/19/21 08/19/21 Unknown History release Allergies Allergy/AdvReac Type Severity Reaction Status Date / Time Penicillins Allergy Mild ALGY-Rash Verified 08/19/21 07:02 vancomycin Allergy Mild ALGY-Redness Verified 08/19/21 07:02 of Skin Current Medications Generic Name Dose Route Start Last Admin Trade Name Freq PRN Reason Stop Dose Admin Atorvastatin Calcium 40 mg 08/18/21 22:45 08/18/21 23:34 Atorvastatin 40 Mg Tablet PO 40 mg BEDTIME ASHLEY Administration Enoxaparin Sodium 90 mg 08/19/21 06:00 08/19/21 05:53 Enoxaparin 100 Mg/Ml Syringe 1 mg/kg (90 mg) 90 mg SUBCUT Administration Q12H ASHLEY Fluoxetine HCl 10 mg 08/19/21 06:00 08/19/21 05:53 Fluoxetine 10 Mg Capsule PO 10 mg QAM ASHLEY Administration PFSH Acute PFSH: Medical History Hypertension Left knee DJD Osteoarthritis Tobacco chew use Surgical History H/O foot surgery History of back surgery Family History Other Diabetes Stroke Social History (Reviewed 08/19/21 @ 08:38 by Monty Hodges Smoking and tobacco status: never smoked Alcohol intake: current Alcohol intake frequency: holidays/special occasions only Substance/Drug Use: never Lives independently: Yes Household members: spouse Marital status: Vitals/I&O/Wt Last Vital Signs Temp 0 F L 08/19/21 05:29 Pulse 58 L 08/19/21 06:00 Resp 18 08/19/21 04:00 BP 136/81 08/19/21 04:00 Pulse Ox 97 08/19/21 04:00 Weight last 48 hrs Weight 194 lb Weight 193 lb Physical Exam Narrative: GENERAL: Alert and oriented x3. HEENT: Exam within normal limits. [] NECK: Supple without jugular vein distention. The carotid upstroke is normal without bruits. [] BACK: Exam normal. [] LUNGS: Clear. [] HEART: Regular rate and rhythm. [] ABDOMEN: Soft EXTREMITIES: No edema. [] NEUROLOGIC: Exam normal. [] SKIN: Unremarkable. [] Data : 08/19/21 02:42 08/19/21 02:42 A&P Assessment and plan (1) Abnormal stress test: Status: Acute (2) Chest pain: Status: Acute (3) Hypertension: Status: Acute Plan Patient has been having on and off chest pain symptoms relating to multiple ER visits. Typical symptoms especially on exertion. Has also been noticing resting pains. Transferred from outside hospital ER for possible coronary angiogram. Risks and benefits of the procedure discussed with the patient. He understands the risks and benefits and wants to proceed with the procedure. We will perform coronary angiogram with possible percutaneous coronary intervention today. Continue aspirin. Continue nitro drip. Will need strict blood pressure control. Echocardiogram ordered Thank you for involving us with care of this patient. We will continue to follow. Please call with questions. Consult Attestations Medical Necessity Statement: Care expected to cross 2 midnights. Coding Level of Care Code Acute It Compliance Manager for Dixie Vital Diagnoses Abnormal stress test R94.39 Chest pain R07.9 Hypertension I10
--- NOTE | 2021-08-19 08:01 | XACV_ITS ---
Exam Room: [facility] Ht: 168 cm Wt: 88 kg BSA: 2.05 m2 Gender: Male : 1965 Any Known Allergies: Morphine Exam Priority: Routine Procedure(s): Procedure Description: Diagnostic procedure Procedure Description: Coronary Angiography Procedure Description: Pressure Wire Diagnostic Cath Status: Urgent Diagnostic Findings * INDICATION: 55 year old male with past medical history of hypertension who had abnormal stress test back in April showing scarring in left circumflex artery territory with daniel-infarct ischemia. Plan was to have outpatient coronary angiogram however he has been having on and off chest discomfort. This is his second presentation to outside hospital ER with worsening chest pain symptoms. * Proximal Circumflex: moderate 40-50% stenosis, VY: 3 flow. * Left Main has no disease. * Right Coronary Artery has no disease. * Mid Left Anterior Descending: minimal 30% stenosis, VY: 3 flow. * Ramus: mild 40% stenosis, VY: 3 flow. * Coronary angiography shows right dominance. Interventional Findings * Procedure Detail: We engaged left main artery with XB 3.0 guide catheter. IV heparin was administered to maintain ACT above 250s. After normalization, IFR wire was advanced into distal left circumflex artery. IFR value of 0.98 was obtained. iFR wire was removed and guide catheter was removed. Patient left the Hand Sign Writer in a stable condition.. Conclusions 1. There is moderate proximal left circumflex artery stenosis. Status post IFR that is nonischemic with a value of 0.98.. Recommendations * Aggressive risk factor modification. * Chest discomfort likely secondary to microvascular dysfunction. Can add Imdur. * Outpatient cardiology follow-up in 4 weeks. Interventional RX Recommendation: medical therapy and/or counseling Diagnostic RX Recommendation: medical therapy and/or counseling Anticoagulation: Heparin Pressures Phase:Rest AO : 121 / 79 ( 97 ) @ 10:09:00 AM Clinical Evaluation EBL: 5mL-10mL Procedural Details Procedure Consent Obtained. Admit Source: In Patient. Pre-Procedure Time Out. Identified patient by full name and date of as verbalized by the patient/guarantor. Does the consent match the physician's order: Yes. Accurate & Complete Informed Consent: Yes. Inpatient/Outpatient History & Physical on Chart: Yes. If H&P is completed, is and addenduem needed: No; If yes, is the addendum complete: No. Visualize and Verify Site with Patient/Guarantor: N/A. Relevant Radiology Images available: No. The risks, benefits, and alternatives of sedation and/or procedure were discussed by physician. The patient agrees to continue. Procedure started. [facility] Clinical Fraility Score: 3: Managing Well. Hand Sign Writer Indications: Worsening Angina. Chest Pain Symptom Assessment: Typical Angina Symptoms. Correct patient, site and procedure confirmed by cath team. Current diagnosis: Chest Pain, Abnormal Stress test. PERRLA. Strong, equal hand jewelry mold maker bilaterally. Lungs clear x 5 lobes. IV Site on Arrival: 20 gauge in the right hand. IV Fluids: 0.9% NaCl at KVO. 0 mL infused prior to chemical laboratory chief. Pre Procedural Pulses: bilateral posterior tibial was 3+. Pre Procedural Pulses: bilateral dorsalis pedis was 3+. Pre Procedural Pulses: bilateral radial was 3+. Oxygen started at 2liters/min via nasal canula. right radial was prepped with chloroprep then draped in the usual sterile fashion. Physician notified. Baseline sample Acquired. HR: 50 BPM. Physician arrived. Arturo Narvaez RN relieved Sonal Coe RN for circulate nurse. Physician scrubbed in. Immediate Pre-Procedure Time Out. Correct Patient: Yes; Correct Procedure: Yes; Correct Site: Yes; Correct Patient Position: Yes; Correct Supplies: Yes; Dried Flammable Prep: Yes; Blood Products Available: No;. Lidocaine 1% infiltrated to the right radial. Arterial access obtained. A 5 comoran TIG catheter in over wire. Heparin not administered due to Lovenox administration this am. Multiple views taken of left coronary artery. Catheter redirected to the RCA. Multiple views taken of right coronary artery. Catheter removed over the standard wire. Physician review of cine films. 6 comoran XB 3 guide catheter was inserted over the standard wire. Standard wire out. IFR omniwire advanced through guide catheter. Advanced IFR wire distal to lesion in proximal circumflex. IFR results proximal circ : 0.98. IFR pullback 0.98. IFR wire out through guide catheter. Guide catheter out. A TR Band was successful obtaining hemostatsis at the Right Radial artery insertion site. Post-op diagnosis: Moderated left proximal circumflex stenosis, Non-obstructive CAD. Post Procedure: Pulses reassessed and unchanged. PERRLA. Strong, equal hand jewelry mold maker bilaterally. No VTE prophylaxis required. Medication's Wasted: Nitro = 49.6 mg. Medication's Wasted: Heparin = 6000 unit. Total IV fluids: 50 mL. Complications: None. Estimated blood loss: 5mL-10mL. Responsiveness - Normal response to verbal stimuli; alert and oriented, PERRLA. Airway - Unaffected, no intervention required; spontaneous ventilation. Circulation: W/N/L, pulses unchanged. Nausea/Vomiting: N/A. Procedure completed. Patient transferred by wheelchair to [facility]. Access Site Site: Right Radial artery Sheath Size: 6 Fr Hemostasis Method: TR Band Hemostasis Success: Successful Procedure Medications Start: 8:29 AM Stop: 8:29 AM Medication: Diphendryamine Amount: 50 mg Route: I.V. Start: 8:30 AM Stop: 8:30 AM Medication: Versed Amount: 1 mg Route: I.V. Start: 8:30 AM Stop: 8:30 AM Medication: Fentanyl Amount: 50 mcg Route: I.V. Start: 8:45 AM Stop: 8:45 AM Medication: Versed Amount: 1 mg Route: I.V. Start: 8:46 AM Stop: 8:46 AM Medication: Nitrogylcerin Amount: 200 mcg Route: I.A. Start: 9:01 AM Stop: 9:01 AM Medication: Nitrogylcerin Amount: 200 mcg Route: I.A. I, the attending physician, have reviewed and verified all procedure medications. Yes, all medications given per verbal order History/Risk Factors Hypertension: Yes Dyslipidemia: No Peripheral Arterial Disease (PAD): No Myocardial Infarction (WA): No Obesity: No Renal Disease: No Tobacco Use: Current/Recent(w/in 1 year) Prior Interventions PCI: No CABG: No Valve Surgery: No Report Signatures Finalized by Tom Jenkins MD on 08/27/2021 01:06 PM
[2021-08-19] MEDS: aspirin 325 mg Tablet 650 MG PO (08:08)
--- NOTE | 2021-08-19 08:30 | W.PM.OPSUD ---
Surgery/Procedure H&P Update DATE OF PROCEDURE: August 19, 2021 DATE H&P PERFORMED: 08/19/21 H&P UPDATE INFORMATION: I have reviewed H&P completed within last 30 days, I have examined patient prior to procedure and No changes to prior documentation PREOP DIAGNOSIS: Worsening angina PRIMARY INDICATION FOR PROCEDURE: Worsening angina PLANNED PROCEDURE: Left heart cath with possible percutaneous coronary intervention PATIENT REASSESSED PRIOR TO SEDATION, WITH NO CHANGE NOTED: Yes PHYSICAL EXAM: alert, oriented x 3, clear to auscultation bilaterally and regular rate & rhythm AIRWAY EVAL/ANESTHESIA PLAN: ASA III, Local Anesthesia, Risks, benefits & alternatives of sedation and/or procedure discussed and Patient agrees to continue as planned ADDITIONAL INFORMATION: Moderate sedation
--- NOTE | 2021-08-19 08:36 | USCV_ITS ---
Andre Conn Age: 55 Gender: M : 1965 Exam Date: 08/19/2021 14:24 Ordering Phys: Tom Jenkins M.D ([email or web address]) Technologist: Hardik Zhang Exam Location: [facility] [place] Indication: post cath BP: 141 / 78 HR: 64 Rhythm: Sinus Technical Quality: Adequate MEASUREMENTS (Male / Female) Normal Values 2D ECHO LV Diastolic Diameter PLAX 4.5 cm 4.2 - 5.9 / 3.9 - 5.3 cm LV Systolic Diameter PLAX 2.5 cm IVS Diastolic Thickness 1.1 cm 0.6 - 1.0 / 0.6 - 0.9 cm IVS Systolic Thickness 1.7 cm LVPW Diastolic Thickness 1.1 cm 0.6 - 1.0 / 0.6 - 0.9 cm LVPW Systolic Thickness 1.4 cm LVOT Diameter 3.4 cm LV Ejection Fraction 2D Teich 76.0 % LV Ejection Fraction MOD 2C 69.2 % LV Ejection Fraction 2C AL 70.0 % LA Diameter 3.8 cm Aorta at Sinotubular Diameter 3.3 cm M-MODE Aortic Annulus Diameter 3.3 cm LA Ao Ratio MM 1.1 MV E Point Septal Separation 0.8 cm DOPPLER AV Peak Velocity 127.0 cm/s LVOT Peak Velocity 95.0 cm/s AV Area Cont Eq vti 6.3 cm squared AV Area Cont Eq pk 7.0 cm squared MV Area PHT 5.0 cm squared Mitral E to A Ratio 1.2 MV E' Velocity 39.0 cm/s Mitral E to MV E' Ratio 6.5 Mitral E to LV E' Lateral Ratio 6.0 Mitral E to LV E' Septal Ratio 7.0 TR Peak Velocity 161.0 cm/s TR Peak Gradient 10.4 mmHg TV Peak E Velocity 87.0 cm/s Right Atrial Pressure 3.0 mmHg Pulmonary Artery Systolic Pressu 13.4 mmHg PV Peak Velocity 124.0 cm/s FINDINGS Left Ventricle Normal left ventricular size. LV systolic function is normal with EF of 55-60%. No regional wall motion abnormalities. Diastolic function is normal Right Ventricle The right ventricle is normal in size and function. Right Atrium The right atrium is normal in size. Left Atrium The left atrium is normal in size. Mitral Valve Structurally normal mitral valve without significant stenosis or prolapse. There is no mitral regurgitation. Aortic Valve Structurally normal aortic valve without significant sclerosis or stenosis. There is no aortic regurgitation. Tricuspid Valve Structurally normal tricuspid valve without significant stenosis. Trace tricuspid regurgitation. Insufficient TR jet to calculate RVSP Pulmonic Valve Not well visualized Pericardium Normal pericardium without effusion. Aorta Normal ascending aorta dimension. IVC CONCLUSIONS LV systolic function is normal with EF 55 to 60%. Diastolic function is normal Trace tricuspid regurgitation. No comparison studies are available Tom Jenkins MD (Electronically Signed) Final Date: 27 August 2021 11:58 S
--- NOTE | 2021-08-19 09:26 | PM.PROC ---
Procedure Note: Procedure: Left heart cath Complications: None Other Information: BRIEF CATH PROCEDURE NOTE: Left main artery: Patent LAD: Has moderate, mid vessel 20 to 30% stenosis. Left circumflex artery: Has moderate 40 to 50% proximal vessel stenosis. S/p IFR which was nonischemic. RCA: Patent Nonobstructive CAD. Moderate left circumflex artery stenosis with normal IFR. Symptoms likely due to microvascular disease. Can start Imdur. Uptitrate metoprolol as tolerated. Patient can be discharged later today if stable. Coding Level of Care Code Acute Scrap Wheeler for Dixie Vital
--- NOTE | 2021-08-19 11:42 | PM.DCS ---
Discharge Providers Date of Admission: 08/18/21 21:51 Date of Discharge: August 19, 2021 Attending Provider at Admission: Den Lima Attending Provider at Discharge: Angelito Cohen MD Primary Care Provider: CORNEL Gregory Diagnoses at Discharge Discharge Diagnosis (1) Abnormal stress test: Status: Acute (2) Chest pain: Status: Acute (3) Hypertension: Status: Acute Reason for Visit Reason for Visit: chest Pain Hospital Course Hospital Course This is a 55-year-old male with a past medical history of hypertension, abnormal stress test who presents to [facility] for chest pain patient was admitted to [facility] for chest pain, with positive stress test, but underwent coronary angiogram with findings of nonobstructive CAD, moderate left circumflex stenosis with normal IFR. No recurrent chest pain during his hospitalization. Symptoms likely secondary to microvascular disease. Will need to optimize patient's Imdur, metoprolol, follow-up with cardiology as outpatient Physical Exam Const: COMMON NORMALS: no acute distress and patient oriented x3 Resp: COMMON NORMALS: normal respiratory effort, No retractions, No use of accessory muscles and clear to auscultation bilaterally AUSCULTATION: clear to auscultation bilaterally Cardio: COMMON NORMALS: regular rate, regular rhythm, S1 normal heart sound present and S2 normal heart sound present RATE: regular rate RHYTHM: regular rhythm HEART SOUNDS: S1 normal heart sound present and S2 normal heart sound present GI: COMMON NORMALS: Normal to inspection, nondistended, normoactive bowel sounds present, Soft to palpation and non-tender PALPATION: Yes Soft to palpation Extremity: COMMON NORMALS: no pedal edema Neuro: COMMON NORMALS: patient oriented x3 Psych: COMMON NORMALS: mental status grossly normal Discharge Data Studies Completed and Pending Pending at discharge Category Date Time Status APPAREL PATTERNMAKER request for service Routine Exams 08/19/21 08:01 Taken Complete Blood Count w/Auto AM LABS Lab 08/20/21 04:00 Ordered Complete Blood Count w/Auto AM LABS Lab 08/21/21 04:00 Ordered Comprehensive Metabolic Panel AM LABS Lab 08/20/21 04:00 Ordered Comprehensive Metabolic Panel AM LABS Lab 08/21/21 04:00 Ordered CV. echo complete* [id number] Routine Ultrasound 08/19/21 08:36 Ordered Laboratory Results WBC 7.7 10^3/uL (4.0-10.0) 08/19/21 02:42 RBC 5.07 10^6/uL (4.1-5.3) 08/19/21 02:42 Hgb 15.7 g/dL (11.7-16.6) 08/19/21 02:42 Hct 43.5 % (42.0-52.0) 08/19/21 02:42 MCV 85.8 fl (80-94) 08/19/21 02:42 MCH 31.0 pg (28.0-34.0) 08/19/21 02:42 MCHC 36.1 g/dL (30.0-36.0) H 08/19/21 02:42 RDW 12.7 % (12.1-15.1) 08/19/21 02:42 Plt Count 183 10^3/cmm (130-400) 08/19/21 02:42 MPV 9.2 fL (7.4-10.4) 08/19/21 02:42 Neut % (Auto) 60.1 % 08/19/21 02:42 Lymph % (Auto) 30.9 % 08/19/21 02:42 [place] % (Auto) 6.9 % 08/19/21 02:42 Eos % (Auto) 0.9 % 08/19/21 02:42 Baso % (Auto) 0.6 % 08/19/21 02:42 Neut # (Auto) 4.63 10^3/uL (1.8-7.7) 08/19/21 02:42 Lymph # (Auto) 2.4 10^3/uL (0.8-4.8) 08/19/21 02:42 [place] # (Auto) 0.5 10^3/uL (0.2-0.9) 08/19/21 02:42 Eos # (Auto) 0.1 10^3/uL (0.0-0.8) 08/19/21 02:42 Baso # (Auto) 0.1 10^3/uL (0.0-0.1) 08/19/21 02:42 Nucleated RBC % (auto) 0 % 08/19/21 02:42 Nucleated RBCs # 0.0 /100WBC 08/19/21 02:42 Sodium 140 mmol/L (136-145) 08/19/21 02:42 Potassium 3.6 mmol/L (3.5-5.1) 08/19/21 02:42 Chloride 105 mmol/L (98-107) 08/19/21 02:42 Carbon Dioxide 25 mmol/L (22-29) 08/19/21 02:42 Anion Gap 13.6 (5-19) 08/19/21 02:42 BUN 11 mg/dL (6-20) 08/19/21 02:42 Creatinine 0.9 mg/dL (0.7-1.2) 08/19/21 02:42 GFR Calculation 87.3 mL/min (90-130) L 08/19/21 02:42 Glucose 101 mg/dL (65-115) 08/19/21 02:42 Calculated Osmolality 290 mOsm/kg (285-295) 08/19/21 02:42 Calcium 9.4 mg/dL (8.5-10.5) 08/19/21 02:42 Total Bilirubin 0.7 mg/dL (0.15-1.2) 08/19/21 02:42 AST 21 U/L (0-40) 08/19/21 02:42 ALT 29 U/L (0-41) 08/19/21 02:42 Alkaline Phosphatase 69 IU/L (40-130) 08/19/21 02:42 Troponin T Gen 5 ng/L 6 ng/L (0-15) 08/19/21 02:42 Total Protein 6.5 g/dL (6.6-8.7) L 08/19/21 02:42 Albumin 4.2 g/dL (3.5-5.2) 08/19/21 02:42 Globulin 2.3 g/dL (1.3-4.6) 08/19/21 02:42 Vitals Last Vital Signs Temp 98.5 F 08/19/21 07:40 Pulse 54 L 08/19/21 10:45 Resp 14 08/19/21 10:30 BP 133/72 08/19/21 10:45 Pulse Ox 95 08/19/21 10:45 Discharge Plan Discharge Patient Disposition: Home Condition: Stable Prescriptions: Continued aspirin 325 mg tablet 650 mg PO QAM 0RF (DME) HINGED KNEE BRACE See Rx Instructions .Route .MEDSUPPLY Qty: 1 0RF Rx Instructions: As directed cyclobenzaprine 10 mg tablet 10 mg PO TID PRN (Reason: muscle spasm) 10 Days Qty: 30 0RF lisinopril 10 mg tablet 10 mg PO DAILY Qty: 90 0RF multivitamin Tablet 1 tab PO DAILY 0RF metoprolol succinate 25 mg tablet extended release 24 hr 12.5 mg PO DAILY 0RF pantoprazole 40 mg tablet,delayed release (DR/EC) 40 mg PO QAM 0RF fluoxetine 10 mg capsule 10 mg PO QAM 0RF isosorbide mononitrate 10 mg tablet 10 mg PO BID 0RF Rx Instructions: TAKE 7 HOURS APART CoQ-10 100 mg Capsule 100 mg PO DAILY 0RF Nitrostat 0.4 mg Tablet, Sublingual 0.4 mg SUBLINGUAL Q5M PRN (Reason: Chest Pain) 0RF Rx Instructions: do not exceed 3 doses per episode Referrals: Tom Jenkins M.D [Physician] - 2 weeks Discharge Diet: Cardiac Discharge Activity: Resume usual activity Patient Instructions: Opioid Safety Activity Restrictions/Additional Instructions: - Please follow-up with cardiology as outpatient, if you have recurrent chest pain please come to the emergency room Discharge Attestations Time Spent in Discharge Care*: less than 30 min Quality Metrics Clinical Quality Measures [ No reported AMI, CVA or VTE this stay] Coding Level of Care Code Acute Chg FW DC note Diagnoses Abnormal stress test R94.39 Chest pain R07.9 Hypertension I10
--- NOTE | 2021-08-19 14:17 | PC.NURSE ---
TR bacnd removed after titrating air out of TR band over 2 hours. Site cleaned with alcohol wipes and dressed with 2x2 and tegaderm. Patient reminded of lifting restrictions for right wrist.
== END 2021-08-19 15:30 | disposition home or self-care (01) | DRG 287 ==
PROVIDERS: Internal Medicine; Admitting Provider Internal Medicine; PCP Nurse Practitioner Family; Visit Provider Family Medicine
PROC: B2111ZZ Fluoroscopy of Multiple Coronary Arteries using Low Osmolar Contrast (ICD-10-PCS; principal; 2021-08-19 08:30)
DX: I25.110 Atherosclerotic heart disease of native coronary artery with unstable angina pectoris (principal); I10 Essential (primary) hypertension; M19.90 Unspecified osteoarthritis, unspecified site; F17.220 Nicotine dependence, chewing tobacco, uncomplicated; R94.39 Abnormal result of other cardiovascular function study; Z79.82 Long term (current) use of aspirin
CPT/HCPCS: 36415; 80053; 84484; 85025; 93306; 93454; 93571; 96360; 96372; 99152; 99153; C1769; C1887; C1894; J1200; J1644; J1650; J2250; J3010; J3490; J7030; Q9967

== ENCOUNTER → 2021-11-02 15:44 | Outpatient (BNVA) | payer MEDICARE, SELFPAY | PROVIDERS: PCP Nurse Practitioner Family; Visit Provider Internal Medicine Cardiovascular Disease | DX: R07.9 Chest pain, unspecified (principal); I25.10 Atherosclerotic heart disease of native coronary artery without angina pectoris; I10 Essential (primary) hypertension; F17.220 Nicotine dependence, chewing tobacco, uncomplicated; Z82.49 Family history of ischemic heart disease and other diseases of the circulatory system | CPT/HCPCS: 99214 ==

== ENCOUNTER → 2021-11-23 09:01 | Outpatient (BNVA) | payer MEDICARE, SELFPAY | PROVIDERS: PCP Nurse Practitioner Family; Visit Provider Student in an Organized Health Care Education/Training Program | DX: S67.21XA Crushing injury of right hand, initial encounter (principal); W23.0XXA Caught, crushed, jammed, or pinched between moving objects, initial encounter; S61.212A Laceration without foreign body of right middle finger without damage to nail, initial encounter | CPT/HCPCS: 99204 ==

== ENCOUNTER → 2021-12-25 09:42 | Outpatient (BNVA) | payer MEDICARE, SELFPAY | PROVIDERS: PCP Nurse Practitioner Family; Visit Provider Student in an Organized Health Care Education/Training Program | DX: S61.214A Laceration without foreign body of right ring finger without damage to nail, initial encounter (principal); R60.9 Edema, unspecified; X58.XXXA Exposure to other specified factors, initial encounter; S61.212A Laceration without foreign body of right middle finger without damage to nail, initial encounter | CPT/HCPCS: 99213 ==

== ENCOUNTER → 2022-02-01 13:29 | Outpatient (BNVA) | payer MEDICARE, SELFPAY | PROVIDERS: PCP Nurse Practitioner Family; Visit Provider Specialist | DX: M17.12 Unilateral primary osteoarthritis, left knee (principal); M23.92 Unspecified internal derangement of left knee | CPT/HCPCS: 20610; 73560; 73565; 99213 ==

== ENCOUNTER 2022-05-04 13:48 | Outpatient (CLI) | payer MEDICARE, SELFPAY ==
--- NOTE | 2022-05-04 14:36 | IR_ITS ---
WS: [id number] EXAMINATION: [place] [id number] REASON FOR EXAM: knee pain on the left with previous surgical history COMPARISON: None available. ORDER DATE: 05/04/2022 2:36 PM HISTORY: A brief history was obtained from the patient consisting of the timing of onset and possible cause and quality as well as location of the pain or other symptoms. The patient denies any recent a spirin, NSAID or other anticoagulant use. Patient denies any allergy to contrast agents or local anes thetics. TECHNIQUE: Informed consent was obtained from the patient for the procedure with the risks and benefi ts outlined. The patient was allowed to ask any questions concerning the procedure. A timeout was per formed in the presence of procedural staff. The patient was placed supine on the fluoroscopy table. T he skin over the selected point of access was sterilely prepped and draped with maximum sterile barri ers.. The skin was vigorously cleansed with antiseptic for at least 3 minutes. Using aseptic techniqu e, 1 percent Xylocaine was injected into the skin and progressively into the subcutaneous tissue. Aft er this, the joint space was quickly accessed with a 22 needle utilizing fluoroscopy the prepared com bination of 2 cc of Omnipaque 240 diluted in 8 mL of normal saline injected into the joint. The patie nt tolerated the procedure well and there were no complications. Appropriate images were obtained. FINDINGS: Intra-articular injection as above CONTRAST: 2 mL Omnipaque 240 IR/[place] [id number] IMPRESSION: SATISFACTORY INTRA-ARTICULAR CONTRAST INJECTION FOR CT ARTHROGRAM FLUOROSCOPY TIME: 1min [id number] # OF SPOT FILMS: 4
--- NOTE | 2022-05-04 14:36 | CT_ITS ---
WS: [id number] CT ARTHROGRAM LEFT KNEE. TECHNIQUE: CT arthrogram LEFT knee with coronal and sagittal reformatted images. CLINICAL INFORMATION: M17.12 - Unilateral primary osteoarthritis, left knee COMPARISON: CT September 12, 2019 DLP: 312.[address] scans at [facility] use at least one of these dose optimization techniques: automated e xposure control; mA and/or kV adjustment per patient size (includes targeted exams where dose is matc hed to clinical indication); or iterative reconstruction. FINDINGS: Moderate to advanced tricompartmental arthritis LEFT knee. Hypertrophic patella. Vascular calcificati on. Interval postoperative changes LEFT knee arthroscopy with partial meniscectomy and synovial debrideme nt. Patellofemoral synovectomy. Chronic thinning of the lateral meniscus which appears intact. Recurrent tear of the posterior horn m edial meniscus with contrast filled defect extending to the meniscal root best appreciated on the cor onal imaging. Postoperative defect involving the posterior horn medial meniscus. Blunting of the ante rior horn. Osteoarthritis appears progressed compared to September 12, 2019 with increased joint space narrowing and chondromalacia. Uqdu-[id number]-[id number] articulation medial joint compartment with subchondral sclerosis appears progressed. Mild hypertrophic changes along the joint line. Previously described synovial adhesions have resolved with synovectomy. Small popliteal cyst fill with contrast measuring 1.8 x 0.7 x 5.3 CM. ACL and PCL appear intact. CT/CT knee LT w con [id number] IMPRESSION: 1. Recurrent high-grade tear involving the posterior horn medial meniscus exte nding to the meniscal root with full-thickness contrast-filled defect. 2. Advanced degenerative arthritis medial joint compartment progressed compare d to previous with subchondral sclerosis and slight subchondral cystic change. 3. Progress chondromalacia worse in the medial joint compartment. 4. Previously described synovial adhesions have resolved with synovectomy. 5. Small popliteal cyst. 6. ACL and PCL appear intact. 7. No other remarkable findings.
[2022-05-04] MEDS: iohexol 240 mg/mL 50 mL Btl INTRA-ARTI (15:22)
== END 2022-05-04 13:49 | disposition home or self-care (01) ==
LOC: RAD 13:48
PROVIDERS: PCP Nurse Practitioner Family; Visit Provider Specialist
DX: M17.12 Unilateral primary osteoarthritis, left knee (principal); M71.22 Synovial cyst of popliteal space [Baker], left knee; S83.242A Other tear of medial meniscus, current injury, left knee, initial encounter; X58.XXXA Exposure to other specified factors, initial encounter
CPT/HCPCS: 27369; 73701; 77002; Q9966

== ENCOUNTER → 2022-05-10 10:10 | Outpatient (BNVA) | payer MEDICARE, SELFPAY | PROVIDERS: PCP Nurse Practitioner Family; Visit Provider Specialist | DX: M17.12 Unilateral primary osteoarthritis, left knee (principal); S83.242D Other tear of medial meniscus, current injury, left knee, subsequent encounter; X58.XXXD Exposure to other specified factors, subsequent encounter | CPT/HCPCS: 99213 ==

== ENCOUNTER → 2023-01-28 09:30 | Outpatient (BNVA) | payer MEDICARE, SELFPAY | PROVIDERS: PCP Nurse Practitioner Family; Visit Provider Nurse Practitioner Family | DX: R00.1 Bradycardia, unspecified (principal); I10 Essential (primary) hypertension; J01.10 Acute frontal sinusitis, unspecified | CPT/HCPCS: 93005 ==

== ENCOUNTER → 2023-05-30 09:52 | Outpatient (BNVA) | payer MEDICARE, SELFPAY | PROVIDERS: PCP Nurse Practitioner Family; Visit Provider Internal Medicine | DX: R00.1 Bradycardia, unspecified (principal); I49.1 Atrial premature depolarization; I49.3 Ventricular premature depolarization | CPT/HCPCS: 93242 ==

== ENCOUNTER → 2023-12-09 08:31 | Outpatient (BNVA) | payer MEDICARE, SELFPAY | PROVIDERS: PCP Nurse Practitioner Family; Visit Provider Nurse Practitioner Family | DX: I10 Essential (primary) hypertension (principal) | CPT/HCPCS: 80053; 80061 ==

== ENCOUNTER → 2024-04-23 10:13 | Outpatient (BNVA) | payer MEDICARE, SELFPAY | PROVIDERS: PCP Nurse Practitioner Family; Visit Provider Specialist | DX: M17.12 Unilateral primary osteoarthritis, left knee (principal); G89.29 Other chronic pain; Z46.89 Encounter for fitting and adjustment of other specified devices | CPT/HCPCS: 73560; 73565 ==

== ENCOUNTER 2024-04-23 11:52 | Outpatient (CLI) | payer MEDICARE, SELFPAY | END 2024-04-23 11:53 | disposition home or self-care (01) | LOC: SPT 11:53 | PROVIDERS: PCP Nurse Practitioner Family; Visit Provider Specialist | DX: Z46.89 Encounter for fitting and adjustment of other specified devices (principal); M17.12 Unilateral primary osteoarthritis, left knee | CPT/HCPCS: L1812 ==

== ENCOUNTER 2024-05-24 14:20 | Outpatient (CLI) | payer MEDICARE, SELFPAY ==
--- NOTE | 2024-05-24 15:00 | CT_ITS ---
WS: [id number] CT LEFT KNEE, NONCONTRAST [facility] TECHNIQUE: Noncontrast CT of the LEFT knee to include the LEFT hip and ankle. CLINICAL INFORMATION: left knee pain COMPARISON: None. DLP: 960.[address] scans at [facility] use at least one of these dose optimization techniques: automated exposure control; mA and/or kV adjustment per patient size (includes targeted exams where dose is matched to clinical indication); or iterative reconstruction. FINDINGS: Advanced tricompartment arthritis. Hypertrophic changes along the joint line. Moderate suprapatellar effusion. Hypertrophic patella. Partially visualized bilateral sacroiliac fixation. Prostate calcification. Fat- containing LEFT inguinal hernia. Normal sigmoid colon. Vascular calcification. CT/CT knee LT [facility] [id number] IMPRESSION: Images obtained for preoperative purposes.
[2024-05-24 15:02] LABS: Basophils % 0.5 %; Eosinophils # 0.1 10^3/uL (0.0-0.8); Eosinophils % 0.9 %; Hematocrit 46.6 % (37-53); Lymphocytes # 1.8 10^3/uL (0.8-4.8); Lymphocytes % 23.3 %; Mean Corpuscular HGB Conc 34.8 g/dL (30-55); Mean Corpuscular Hemoglobin 30.4 pg (27-33); Mean Corpuscular Volume 87.4 fl (82-101); Monocytes # 0.5 10^3/uL (0.2-0.9); Monocytes % 6.3 %; Neutrophils # 5.22 10^3/uL (1.8-7.7); Neutrophils % 68.3 %; Nucleated Red Blood Cells % 0 %; Platelet Count 217 10^3/cmm (157-399); Red Blood Count 5.33 10^6/uL (3.85-5.65); Red Cell Distribution Width 12.5 % (12.1-15.1); White Blood Count 7.64 10^3/uL (3.29-11.43)
[2024-05-24 15:10] LABS: Bacteria Urine None Seen /hpf; Hyaline Casts Urine 0-4 /lpf; RBC Urine 0-2 /hpf (0-2); Squamous Epithelial Cell Urine 0-5 /hpf (0-5); WBC Urine 0-5 /hpf (0-5)
[2024-05-24 15:18] LABS: Add Urine Culture? No; Bilirubin Urine Neg (Negative); Blood Urine Neg (Negative); Glucose Urine UA Norm (Normal); Ketones Urine Negative (Negative); Leukocyte Esterase Urine Negative (Negative); Nitrate Urine Negative (Negative); Protein Urine Neg (Negative); Specific Gravity, Urine 1.015 (1.005-1.030); Urine Appearance Clear (CLEAR); Urine Color Yellow (Yellow); Urobilinogen Urine Norm (Negative); pH Urine 6 (5-7)
[2024-05-24 15:24] LABS: Alanine Aminotransferase 29 U/L (0-41); Albumin Level 4.3 g/dL (3.5-5.2); Alkaline Phosphatase 88 U/L (40-130); Aspartate Amino Transferase 21 U/L (0-40); Blood Urea Nitrogen 12 mg/dL (6-20); Calcium 9.4 mg/dL (8.5-10.5); Carbon Dioxide 24 mmol/L (22-29); Chloride 104 mmol/L (98-107); Glomerular Filtration Rate 86.4 mL/min (90-130); Glucose 114 mg/dL (65-115); Osmolality Calculated 289 mOsm/kg (285-295); Sodium 139 mmol/L (136-145); Total Bilirubin 0.7 mg/dL (0.15-1.2); Total Protein 7.3 g/dL (6.6-8.7)
== END 2024-05-24 14:21 | disposition home or self-care (01) ==
PROVIDERS: PCP Nurse Practitioner Family; Referring Provider Family Medicine; Visit Provider Specialist
DX: M17.12 Unilateral primary osteoarthritis, left knee (principal); Z01.818 Encounter for other preprocedural examination; R93.6 Abnormal findings on diagnostic imaging of limbs; M25.462 Effusion, left knee; M89.38 Hypertrophy of bone, other site; Z98.890 Other specified postprocedural states; N42.89 Other specified disorders of prostate; K40.90 Unilateral inguinal hernia, without obstruction or gangrene, not specified as recurrent; I70.90 Unspecified atherosclerosis
CPT/HCPCS: 36415; 73700; 80053; 81001; 85025

== ENCOUNTER → 2024-05-28 10:44 | Outpatient (BNVA) | payer MEDICARE, SELFPAY | PROVIDERS: PCP Nurse Practitioner Family; Visit Provider Family Medicine | DX: Z01.818 Encounter for other preprocedural examination (principal); I44.4 Left anterior fascicular block | CPT/HCPCS: 93005 ==

== ENCOUNTER 2024-06-05 11:16 | Observation (INO) | payer MEDICARE, SELFPAY ==
[2024-06-05] VITALS (26 sets, daily range): BP systolic 104–157; BP diastolic 68–113; PULSE 66–90; RESP 11–18; TEMP 36.1–37; O2SAT 90–99; BMI 33.5
--- NOTE | 2024-06-05 03:21 | P.ANESASSM_ITS ---
Pre-Anesthetic Assessment Height/Weight: Height 5 ft 6 in Operation Date: 06/05/24 08:00 Proposed Procedures p Ezequiel Robot Total Knee Arthroplasty(Left) - Nancy Howard MD Anesthetic Plan Other: No prior issues with anesthesia NPO since yesterday evening Prior CAD history, EF 55 to 60% in 2021 Hypertension on losartan GERD, controlled with Protonix Labs reviewed and acceptable for procedure EKG showing left anterior fascicular block Plan for Medications/Allergies Home Medications ?Medication ?Instructions ?Recorded ?Confirmed ?Last Taken ?Type cyclobenzaprine 10 mg tablet 10 mg PO TID PRN muscle s pasm #90 03/16/24 06/04/24 06/01/24 Rx tabs nitroglycerin 0.4 mg sublingual 0.4 mg sublingual Q5M PRN Chest 03/16/24 06/04/24 Unknown Rx tablet (Nitrostat) Pain #30 tabs pantoprazole 40 mg tablet,delayed 40 mg PO DAILY #90 t abs 03/16/24 06/04/24 06/04/24 Rx release albuterol sulfate 90 mcg/actuation 2 inh inhalation Q6 H PRN shortness 03/20/24 0 06/04/24 Unknown Rx aerosol inhaler of breath or wheezing #6.7 g judy Hinged Knee Brace, left #1 ea 04/23/24 05/28/24 Unkn own Rx aspirin 325 mg tablet 325 mg PO BID 05/28/2406/0405/31/24 History losartan 25 mg tablet 25 mg PO BID 06/04/2406/04/24 History Allergies Allergy/AdvReac Type Severity Reaction Status Date / Time vancomycin Allergy Intermediate turns red Verified 05/28/24 11:06 Penicillins Allergy Mild ALGY-Rash Verified 05/28/24 11:06 [facility] Anesthesia Medical History Hypertension Laceration of right middle finger CAD (coronary artery disease) Left sided sciatica Tobacco chew use Osteoarthritis Left knee DJD Surgical History (Updated 06/04/24 @ 10:26 by Ely Milan RN) H/O foot surgery History of back surgery Family History Other Diabetes Stroke Social History Smoking and tobacco/nicotine status: never used tobacco/nicotine Alcohol intake: current Alcohol intake frequency: holidays/special occasions only Substance/Drug Use: never Lives independently: Yes Household members: spouse Marital status: Data Anesthesia Cardiac Studies: Echocardiogram 08/19/21 Sestamibi Stress Test (Cardiology) 05/12 Cardiac Event Monitor 03/16/21 Holter Monitor 05/30/23
[2024-06-05] MEDS: CELEcoxib 200 mg Capsule 400 MG PO (06:54)
[2024-06-05] MEDS: gabapentin 300 mg Capsule PO (06:54)
[2024-06-05] MEDS: sodium chloride 0.9% 1,000 ML 30 ML IV (06:54)
[2024-06-05] MEDS: acetaminophen 1,000 MG/100 ML PIGGYBACK 400 MG IV ×3 (06:55→23:30)
--- NOTE | 2024-06-05 06:58 | W.PM.OPSUD ---
Surgery/Procedure H&P Update DATE OF PROCEDURE: June 05, 2024 DATE H&P PERFORMED: 05/29/23 H&P UPDATE INFORMATION: I have reviewed H&P completed within last 30 days, I have examined patient prior to procedure, No changes to prior documentation, H&P is in [facility] EMR on date indicated and Risks and benefits of the procedure reviewed PLANNED PROCEDURE: Operation Date: 06/05/24 08:00 Proposed Procedures p Ezequiel Robot Total Knee Arthroplasty(Left) - Nancy Howard MD Related Problem List Diagnoses (1) Primary osteoarthritis of left knee:
--- NOTE | 2024-06-05 07:06 | W.PM.OPSUD ---
Surgery/Procedure H&P Update DATE OF PROCEDURE: June 05, 2024 DATE H&P PERFORMED: 05/29/23 H&P UPDATE INFORMATION: I have reviewed H&P completed within last 30 days, I have examined patient prior to procedure, No changes to prior documentation, H&P is in [facility] EMR on date indicated and Risks and benefits of the procedure reviewed PLANNED PROCEDURE: Operation Date: 06/05/24 08:00 Proposed Procedures p Ezequiel Robot Total Knee Arthroplasty(Left) - Nancy Howard MD Related Problem List Diagnoses (1) Primary osteoarthritis of left knee:
[2024-06-05] MEDS: clindamycin 600 MG/50 ML PREMIX 100 MG IV (07:36)
[2024-06-05] MEDS: tranexamic acid 1,000 mg/10mL SDV 1000 MG IV (08:10)
[2024-06-05] MEDS: BUPivacaine 0.5% INJ 10 mL 20 ML INJECTION (08:40)
[2024-06-05] MEDS: BUPivacaine liposome 13.3 mg/mL SDV 20 mL 266 MG INJECTION (08:40)
--- NOTE | 2024-06-05 10:24 | P.OP_ITS ---
Operative Report Date of procedure: June 05, 2024 Pre-op diagnosis: Degenerative osteoarthritis left knee Post-op diagnosis: Degenerative osteoarthritis left knee Post-op findings: Significant degenerative osteoarthritic change with adhesions secondary to previous arthroscopy Procedure done: Left total knee arthroplasty with Ezequiel guidance Implants: The [place] total knee system with a size 5 triathlon beaded cruciate retaining femur left, a triathlon titanium tibial component size 5 beaded, a triathlon X3 tibial bearing CS insert size 5 X 10 mm and a beaded triathlon titanium asymmetric patella size 38 x 11 mm Specimens removed/disposition: Bone, disposed of Pathology: None Surgeon: Nancy Howard MD Cutting Machine Operator Helper: Kathia Huang, nurse practitioner who services were required for retraction, exposure, closure, and completion of the surgical procedure Anesthesia: General (Per LMA, ASA 3) Estimated blood loss (mL): 400 Tourniquet time (min): 0 (Not utilized) IV fluids (mL): 1,300 Urine output (mL): 200 Complications: None Findings: Significant degenerative osteoarthritis with slight flexion contracture Condition: stable Disposition: PACU (Plan admit to floor for postoperative rehabilitation and pain management under observation status) Brief History: This 58-year-old gentleman presented with complaints of severe left knee pain. He previously has undergone left knee arthroscopy with partial medial and lateral meniscectomies along with a synovial debridement. This was in December 2019. He continues to have pain and x-ray findings are consistent with degenerative osteoarthritis of the knee primarily involving the medial compartment. Also, there was irregularity to the undersurface of the patella. After discussion, the patient wished to proceed with operative intervention in the form of a total knee arthroplasty. Risks and complications were discussed with him. Consents were signed and questions were answered. Procedure: The patient was brought to the operating theater, and after undergoing general anesthesia per LMA, ASA 3, which was well-tolerated. The left lower extremity was prepped with Dura-Prep and draped in usual fashion following placement of a tourniquet high on the leg. The leg was then draped free.? Tourniquet was not elevated throughout the surgical procedure. Prior to commencement of the procedure, a surgical pause was performed, and at the time of the surgical pause, we confirmed the site and side of surgery. Additionally, we confirmed the appropriate and timely administration of preoperative antibiotics, clindamycin 600 mg.? The availability of equipment was confirmed, and the patient's identity was verbalized as well. Following the surgical pause, an incision was made centering over the patella continuing proximally and distally as necessary to allow access to the knee joint. Dissection continued through skin and soft tissues using a scalpel. Hemostasis was obtained using electrocautery. The skin incision was followed by a median parapatellar arthrotomy. The leg was extended and the patella was able to be displaced laterally.? Appropriate arrays and markers were placed in appropriate position for use of the Ezequiel.? Preoperative planning had been accomplished and was discussed in detail with the Ezequiel u.s. representative.? Intraoperative mapping of the femur and tibia was accomplished after the arrays were placed.? Internal markers were also placed.? Once we had accomplished the Ezequiel mapping, we began the appropriate resections for placement of the prosthesis.? The plan was for a cruciate retaining left total knee arthroplasty. Retraction was established using manual retraction and also the Ezequiel leg positioner and retractors.? The knee was evaluated.? There was significant osteoarthritic change.? Appropriate bone resection was accomplished using the Ezequiel.? The femur was sized to a size 5 as well as the tibia.? Initial resection was accomplished on the tibia followed by appropriate resections on the femur. We had performed a medial release at the beginning of the procedure to allow for placement of the array. Proximal tibia was evaluated and it was felt that appropriate size for the tibia was a size 5.? Tray was noted to fit nicely with good coverage.? Rim fit was accomplished with the size 5. A trial reduction was accomplished after osteophytes have been removed as well as the medial and lateral menisci.? We had removed the anterior cruciate ligament at the beginning of the case and preserved the posterior cruciate ligament.? Trial reduction was accomplished with a size 5 femoral cruciate retaining component, a size 5 tibial tray and a size 5 CS tibial bearing insert which was 9 mm. Decision was made to increase the size to a 10 mm at the time of final implantation. Alignment was felt to be appropriate as well.? There was excellent flexion and full extension without lift off of the components. Rotation of the tibia was marked. Trial components were removed after the femur had been drilled.? Prior to removal of the tibial tray which had been pinned in position with appropriate rotation as determined by the Ezequiel plan, we broached the tibia.? Subsequently, the 4 drill holes were made for the prosthetic component.? All trial components were removed, and the wound was irrigated.? Plans were made for insertion of the prosthetic components.? Prior to this, the patella was manually prepared.? After resection of the articular surface with the jogging system, it was measured and measured a 38 mm patella.? We resected approximately 10 mm of patella.? Patellar height was restored with the patellar component. Once again, the wound was irrigated. The Tritanium tibia was impacted into position.? The beaded femur was then impacted into position in a cementless fashion. The CS tibial insert was placed prior to placement of the femoral component. The patella was pressed into position with a patellar clamp.? Exparel was injected about the components deep and superficially.? The knee was then copiously irrigated with betadine and saline and suctioned dry. Attention was then directed to closure. Closure was accomplished with 0 Vicryl in the fascial tissues.? The suture line of 0 Vicryl was supplemented with strata fix, #1, with a running suture from proximal to distal and a second running stitch from distal to proximal.? This was followed by Surgiflo.? Following this, a 2-0 Strata Fix was used in the subcutaneous tissues, and the skin was closed with 3-0 Strata fix.? Care was taken to assure an excellent subcutaneous as well as skin closure.? A sterile dressing was then placed consisting of Dermabond Prineo, OpSite, ABD, sterile soft roll, and an Nabil wrap including over the foot. The patient was returned the Recovery Room in a satisfactory condition. X-rays were obtained and reviewed there.? The patient will be discharged to the floor for postoperative rehabilitation and pain management. Related Problem List Diagnoses (1) Primary osteoarthritis of left knee:
--- NOTE | 2024-06-05 10:52 | XR_ITS ---
WS: [id number] Exam: XR knee LT 1-2V [id number] Date/Time of Exam: 06/05/2024 10:52 AM Reason For Exam: Status post left total knee arthroplasty A LEFT total knee arthroplasty is in place in excellent position. Postoperative changes in the adjacent soft tissues. XR/XR knee LT 1-2V [id number] IMPRESSION: 1. LEFT total knee replacement in excellent position.
[2024-06-05] MEDS: fentaNYL 50 mcg/mL INJ 2mL IVP (11:12)
--- NOTE | 2024-06-05 11:39 | ANE.PACU2 ---
Inpatient post-anesthesia follow up: Airway intact: Yes Vital signs: Temperature 98.5 F Pulse Rate 90 Respiratory Rate 16 Blood Pressure 121/72 Pulse Oximetry 95 Oxygen Delivery Me thod Room Air Oxygen Flow Rate 2 Fraction of Inspir ed Oxygen Hydration adequate: Yes Nausea and vomiting: No Pain level: 1 Mental status: Baseline
[2024-06-05] MEDS: oxyCODONE 5 mg IR Tab/Cap PO ×3 (12:28→21:13)
[2024-06-05] MEDS: CELEcoxib 200 mg Capsule PO ×2 (12:29→23:30)
[2024-06-05] MEDS: chlorhexidine gluconate 0.12% Btl 473 mL 30 ML MUCOUS MEM ×3 (12:29→21:21)
[2024-06-05] MEDS: ondansetron 2 mg/ML SDV 2 mL 4 MG IVP (12:42)
[2024-06-05] MEDS: tranexamic acid 1,000 MG/100 ML PREMIX 600 MG IV (14:42)
[2024-06-05] MEDS: cyclobenzaprine 10 mg Tablet PO (14:55)
[2024-06-05] MEDS: clindamycin 900 MG/50 ML PREMIX 100 MG IV ×2 (16:11→23:30)
[2024-06-05] MEDS: sennosides-docusate Tablet 2 TAB PO (17:20)
[2024-06-05] MEDS: iron polysaccharide complex 150 mg Capsule PO (17:20)
[2024-06-05] MEDS: mupirocin oint 22 gm 1 APPLIC NASAL (17:20)
[2024-06-05] MEDS: losartan 50 mg Tablet 25 MG PO (17:20)
[2024-06-05] MEDS: calcium carbonate 500 mg Chew Tablet 1000 MG PO (17:20)
[2024-06-05] MEDS: aspirin 325 mg Tablet PO (17:20)
[2024-06-06] VITALS (9 sets, daily range): BP systolic 114–124; BP diastolic 69–77; PULSE 70–84; RESP 16–18; TEMP 36.6; O2SAT 97–98
[2024-06-06] MEDS: oxyCODONE 5 mg IR Tab/Cap PO ×4 (01:09→12:18)
[2024-06-06] MEDS: acetaminophen 1,000 MG/100 ML PIGGYBACK 400 MG IV (05:53)
[2024-06-06] MEDS: clindamycin 900 MG/50 ML PREMIX 100 MG IV (06:09)
[2024-06-06 07:07] LABS: Basophils % 0.1 %; Hematocrit 36.6 % (37-53); Lymphocytes # 1.4 10^3/uL (0.8-4.8); Lymphocytes % 11.5 %; Mean Corpuscular HGB Conc 34.2 g/dL (30-55); Mean Corpuscular Hemoglobin 30.9 pg (27-33); Mean Corpuscular Volume 90.6 fl (82-101); Mean Platelet Volume 9.3 fL (7.4-10.4); Monocytes % 8.1 %; Neutrophils # 9.39 10^3/uL (1.8-7.7); Neutrophils % 79.7 %; Nucleated Red Blood Cells % 0 %; Platelet Count 237 10^3/cmm (157-399); Red Blood Count 4.04 10^6/uL (3.85-5.65); Red Cell Distribution Width 12.7 % (12.1-15.1); White Blood Count 11.77 10^3/uL (3.29-11.43)
[2024-06-06 07:20] LABS: Anion Gap 11.4 (5-19); Blood Urea Nitrogen 11 mg/dL (6-20); Calcium 8.6 mg/dL (8.5-10.5); Carbon Dioxide 25 mmol/L (22-29); Chloride 105 mmol/L (98-107); Glomerular Filtration Rate 86.4 mL/min (90-130); Glucose 163 mg/dL (65-115); Osmolality Calculated 287 mOsm/kg (285-295); Potassium 4.4 mmol/L (3.5-5.1); Sodium 137 mmol/L (136-145)
[2024-06-06] MEDS: calcium carbonate 500 mg Chew Tablet 1000 MG PO (08:17)
[2024-06-06] MEDS: iron polysaccharide complex 150 mg Capsule PO (08:17)
[2024-06-06] MEDS: cholecalciferol (vitamin D3) 1,000 unit Tablet 1000 UNIT PO (08:17)
[2024-06-06] MEDS: multivitamin therapeutic Tablet 1 TAB PO (08:18)
[2024-06-06] MEDS: sennosides-docusate Tablet 2 TAB PO (08:18)
[2024-06-06] MEDS: pantoprazole DR 40 mg Tablet PO (08:18)
[2024-06-06] MEDS: aspirin 325 mg Tablet PO (08:18)
[2024-06-06] MEDS: chlorhexidine gluconate 0.12% Btl 473 mL 30 ML MUCOUS MEM (08:20)
[2024-06-06] MEDS: losartan 50 mg Tablet 25 MG PO (08:20)
[2024-06-06] MEDS: mupirocin oint 22 gm 1 APPLIC NASAL (08:20)
--- NOTE | 2024-06-06 09:07 | PC.CHAP ---
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 [] Patient/Family/Request visit [] Outpatient visit [] Follow-up visit [] Physician referral [] Code/Alert [] Routine visit [] Staff referral [] Actively dying [] Patient sleeping [] Family support [] [] Out of room [] Palliative care [] [x] Receiving care in room [] Pre-surgical visit [] Trauma [] Long length of stay [] ICU visit [] Other: Relational/Emotional Strength [] Patient feels connected with others/family/visitors/staff [] Distress [] Loneliness/isolation [] Abandonment Spirituality of Patient [] Person of [place] [] Attends Adventism of their [place] [] Believes in Prayer [] Reads Bible or Lutheran materials [] There are Spiritual issues to be addressed Word Processor Technician Interventions [] Prayer [] Active listening [] Non-anxious presence [] Spiritual/emotional support [] Crisis/trauma care [] Spiritual counseling [] Bereavement support [] Provided bereavement packet [] Provided Bible/devotional materials [] Provided toy/stuffed animal, coloring book to patient or family member [] Provided Communion [] Anointing/[place] [] Salvation [] Completed spiritual assessment [] Other: Impact on Illness or Injury [] Angry [] Fearful [] Anxious [] Often cries [] Exhaustion [] Unable to work [] Unable to attend yazidism [] Unable to walk/stand [] Unable to read [] Unable to drive [] Unable to eat/drink [] Unable to sleep [] Unable to be with family [] Patient intubated [] Other: Summary Time spent with patient
--- NOTE | 2024-06-06 10:53 | PM.DCS ---
Discharge Providers Date of Admission: 06/05/24 11:16 Date of Discharge: June 06, 2024 Attending Provider at Admission: Nancy Howard MD Attending Provider at Discharge: Nancy Howard MD Primary Care Provider: CORNEL Gregory Diagnoses at Discharge Discharge Diagnosis (1) Primary osteoarthritis of left knee: Status: Acute (2) Status post total left knee replacement not using cement: Status: Acute Permanent problem details: Date of procedure: June 05, 2024 Diagnosis: Degenerative osteoarthritis left knee Procedure done: Left total knee arthroplasty with Ezequiel guidance Implants: The [place] total knee system with a size 5 triathlon beaded cruciate retaining femur left, a triathlon titanium tibial component size 5 beaded, a triathlon X3 tibial bearing CS insert size 5 X 10 mm and a beaded triathlon titanium asymmetric patella size 38 x 11 mm Reason for Visit Reason for Visit: M17.125 Brief History: This 58-year-old gentleman presented with complaints of severe left knee pain. He previously has undergone left knee arthroscopy with partial medial and lateral meniscectomies along with a synovial debridement. This was in December 2019. He continues to have pain and x-ray findings are consistent with degenerative osteoarthritis of the knee primarily involving the medial compartment. Also, there was irregularity to the undersurface of the patella. After discussion, the patient wished to proceed with operative intervention in the form of a total knee arthroplasty. Risks and complications were discussed with him. Consents were signed and questions were answered. Hospital Course Hospital Course Patient was admitted to the floor under observation status following same-day left total knee arthroplasty which was well-tolerated. He worked with physical therapy the night after surgery and did well. He also was up and ambulating today and is felt to be safe for discharge to home. Patient is comfortable having worked with PT and been ambulating in his room independently. We will schedule him to be seen for outpatient physical therapy. Initially, he will have in home therapy followed by outpatient therapy. There is no evidence of DVT. He will follow-up in the office as scheduled. Physical Exam Const: COMMON NORMALS: no acute distress, average body habitus, patient oriented x3 and alert GENERAL APPEARANCE: cooperative and comfortable ORIENTATION/CONSCIOUSNESS: Yes awake HENMT: COMMON NORMALS: normocephalic and atraumatic HEAD & SCALP: normocephalic and atraumatic Eye: GENERAL EYE: appearance normal, both eyes and all related structures Chest: COMMONS NORMALS: normal inspection of the chest Resp: COMMON NORMALS: normal respiratory effort EFFORT & INSPECTION: Yes able to speak in complete sentences and Yes symmetric chest movement Extremity: LEFT LOWER EXTREMITY: Yes knee joint (Large outer dressing removed) Left knee: Yes inspection (No significant swelling or ecchymosis), Yes palpation (minimal tenderness), Yes ROM (Able to straight leg raise) and Yes neurovascular exam (intact distally) Neuro: COMMON NORMALS: patient oriented x3 SENSORIUM/ORIENTATION: Yes alert Psych: COMMON NORMALS: mental status grossly normal APPEARANCE: Yes grossly normal ATTITUDE: Yes calm and Yes engaged ATTENTION/CONCENTRATION: Yes attention grossly intact Skin: COMMON NORMALS: no rashes or lesions noted GENERAL SKIN EXAM: no rashes or lesions noted Urinary Catheter Management: Pineda: Cath Placed During This Visit: yes, but has since been removed by the nurse Reason for Continuing Indwelling Catheter: Decision to DC Catheter Urinary Catheter Date of Insertion: 06/05/24 Urinary Catheter Time of Insertion: 07:47 Date Urinary Catheter Removed: 06/05/24 Time Urinary Catheter Discontinued: 15:45 Discharge Data Studies Completed and Pending Completed Studies During Hospitalization Category Date Time Status XR knee LT 1-2V [id number] Urgent Exams 06/05/24 10:52 Completed Radiology Impressions Knee X-Ray 06/05/24 10:52 IMPRESSION: 1. LEFT total knee replacement in excellent position. Laboratory Results WBC 11.77 10^3/uL (3.29-11.43) H 06/06/24 06:21 RBC 4.04 10^6/uL (3.85-5.65) 06/06/24 06:21 Hgb 12.50 g/dL (11.27-16.99) 06/06/24 06:21 Hct 36.6 % (37-53) L 06/06/24 06:21 MCV 90.6 fl (82-101) 06/06/24 06:21 MCH 30.9 pg (27-33) 06/06/24 06:21 MCHC 34.2 g/dL (30-55) 06/06/24 06:21 RDW 12.7 % (12.1-15.1) 06/06/24 06:21 Plt Count 237 10^3/cmm (157-399) 06/06/24 06:21 MPV 9.3 fL (7.4-10.4) 06/06/24 06:21 Neut % (Auto) 79.7 % 06/06/24 06:21 Lymph % (Auto) 11.5 % 06/06/24 06:21 Ware % (Auto) 8.1 % 06/06/24 06:21 Eos % (Auto) 0.0 % 06/06/24 06:21 Baso % (Auto) 0.1 % 06/06/24 06:21 Neut # (Auto) 9.39 10^3/uL (1.8-7.7) H 06/06/24 06:21 Lymph # (Auto) 1.4 10^3/uL (0.8-4.8) 06/06/24 06:21 Ware # (Auto) 1.0 10^3/uL (0.2-0.9) H 06/06/24 06:21 Eos # (Auto) 0.0 10^3/uL (0.0-0.8) 06/06/24 06:21 Baso # (Auto) 0.0 10^3/uL (0.0-0.1) 06/06/24 06:21 Nucleated RBC % (auto) 0 % 06/06/24 06:21 Nucleated RBCs # 0.0 /100WBC 06/06/24 06:21 Sodium 137 mmol/L (136-145) 06/06/24 06:21 Potassium 4.4 mmol/L (3.5-5.1) 06/06/24 06:21 Chloride 105 mmol/L (98-107) 06/06/24 06:21 Carbon Dioxide 25 mmol/L (22-29) 06/06/24 06:21 Anion Gap 11.4 (5-19) 06/06/24 06:21 BUN 11 mg/dL (6-20) 06/06/24 06:21 Creatinine 0.9 mg/dL (0.7-1.2) 06/06/24 06:21 GFR Calculation 86.4 mL/min (90-130) L 06/06/24 06:21 Glucose 163 mg/dL (65-115) H 06/06/24 06:21 Calculated Osmolality 287 mOsm/kg (285-295) 06/06/24 06:21 Calcium 8.6 mg/dL (8.5-10.5) 06/06/24 06:21 Vitals Last Vital Signs Temp 97.9 F 06/06/24 07:18 Pulse 70 06/06/24 08:41 Resp 16 06/06/24 08:41 BP 124/77 06/06/24 08:20 Pulse Ox 98 06/06/24 08:41 O2 Del Method Room Air 06/06/24 08:41 O2 Flow Rate 2 06/05/24 13:50 Discharge Plan Discharge Patient Disposition: Home Health Service Condition: Stable Prescriptions: New oxycodone 5 mg tablet 5 mg PO Q4H PRN (Reason: pain) 7 Days Qty: 40 0RF celecoxib 200 mg Capsule 200 mg PO 1XD 30 Days Qty: 30 0RF acetaminophen 500 mg Tablet 1,000 mg PO Q8H 15 Days Qty: 90 0RF Continued (DME) Hinged Knee Brace, left See Rx Instructions .Route .MEDSUPPLY Qty: 1 0RF Rx Instructions: As directed aspirin 325 mg tablet 325 mg PO BID albuterol sulfate 90 mcg/actuation HFA aerosol inhaler 2 inh inhalation Q6H PRN (Reason: shortness of breath or wheezing) Qty: 6.7 0RF pantoprazole 40 mg tablet,delayed release (DR/EC) 40 mg PO DAILY Qty: 90 0RF Nitrostat 0.4 mg tablet, sublingual 0.4 mg SUBLINGUAL Q5M PRN (Reason: Chest Pain) Qty: 30 0RF Rx Instructions: do not exceed 3 doses per episode cyclobenzaprine 10 mg tablet 10 mg PO TID PRN (Reason: muscle spasm) Qty: 90 0RF losartan 25 mg tablet 25 mg PO BID Rx Instructions: TAKE 1 TABLET BY MOUTH TWICE DAILY Discharge Orders: Discharge Order (Routine); Ordered 06/06/24 Ordered By: Nancy Howard Referrals: [facility] [Outside] Eva Holman FNP [Primary Care Provider] - 06/11/24 8:40 am (Please check in by 8am to complete registeration paperwork. ) Nancy Howard MD [Physician] - 06/18/24 3:45 pm Discharge Diet: Advance as tolerated and Usual diet Discharge Activity: Increase activity as tolerated, Limit activity as instructed and As per PT/OT instructions Patient Instructions: Acetaminophen (By mouth), Oxycodone, Rapid Release (By mouth), Celecoxib (By mouth), Acute Wound Care (DC), Total Knee Replacement (DC), Opioid Safety, Post Anesthesia Care Activity Restrictions/Additional Instructions: Weight-bear as tolerated. You may shower, but do not soak your knee in water. Your large outer dressing will be removed in the hospital. Please keep the dressing that is left on your knee in place unless it begins to leak. Range of motion, strengthening, and gait training per physical therapy. Discharge Attestations Time Spent in Discharge Care*: greater than 30 min Specific Discharge Activities: educating patient, documenting/other paperwork and evaluating patient/reviewing data Quality Metrics Clinical Quality Measures [ No reported AMI, CVA or VTE this stay] Coding Level of Care Code Acute Code for Chg Fwd Diagnoses Primary osteoarthritis of left knee M17.12 Status post total left knee replacement not using cement Z96.652
[2024-06-06] MEDS: CELEcoxib 200 mg Capsule PO (10:57)
[2024-06-06] MEDS: acetaminophen 500 mg Tablet 1000 MG PO (10:59)
--- NOTE | 2024-06-06 13:06 | PC.NURSE ---
Discharge Note Patient discharged to home via private vehicle accompanied by . Discharge instructions reviewed with patient and/or lead generation representative. Mobile pharmacy medications and/or prescriptions provided. Belongings/home medications returned.
== END 2024-06-06 13:07 | disposition home health service (06) ==
LOC: MEDSURG 11:17
PROVIDERS: Admitting Provider Specialist; PCP Nurse Practitioner Family; Visit Provider Specialist
PROC: 8E0Y0CZ Robotic Assisted Procedure of Lower Extremity, Open Approach (ICD-10-PCS; CPT 27447; principal; 2024-06-05 08:00)
DX: M17.12 Unilateral primary osteoarthritis, left knee (principal); Z79.82 Long term (current) use of aspirin; K21.9 Gastro-esophageal reflux disease without esophagitis; I25.10 Atherosclerotic heart disease of native coronary artery without angina pectoris; I10 Essential (primary) hypertension; F17.220 Nicotine dependence, chewing tobacco, uncomplicated
CPT/HCPCS: 27447; 20985; 36415; 51702; 73560; 80048; 85025; 97110; 97116; 97161; 97165; 97530; A4216; C1776; G0378; J0131; J0171; J0666; J1171; J2405; J2704; J3010; J3490; J7030; J9999

== ENCOUNTER → 2024-06-18 16:04 | Outpatient (BNVA) | payer MEDICARE, SELFPAY | PROVIDERS: PCP Nurse Practitioner Family; Visit Provider Nurse Practitioner | DX: Z98.890 Other specified postprocedural states (principal); Z96.652 Presence of left artificial knee joint | CPT/HCPCS: 73560; 73565; 99024 ==

== ENCOUNTER → 2024-07-16 12:51 | Outpatient (BNVA) | payer MEDICARE, SELFPAY | PROVIDERS: PCP Nurse Practitioner Family; Visit Provider Nurse Practitioner | DX: Z96.652 Presence of left artificial knee joint (principal) | CPT/HCPCS: 99024 ==

== ENCOUNTER → 2024-08-08 13:39 | Outpatient (BNVA) | payer MEDICARE, SELFPAY | PROVIDERS: PCP Nurse Practitioner Family; Visit Provider Nurse Practitioner Family | DX: R30.0 Dysuria (principal) | CPT/HCPCS: 81000 ==

== ENCOUNTER → 2024-08-27 10:44 | Outpatient (BNVA) | payer MEDICARE, SELFPAY | PROVIDERS: PCP Nurse Practitioner Family; Visit Provider Nurse Practitioner | DX: Z96.652 Presence of left artificial knee joint (principal); M17.12 Unilateral primary osteoarthritis, left knee; Z98.890 Other specified postprocedural states | CPT/HCPCS: 99024 ==

== ENCOUNTER → 2024-10-22 12:41 | Outpatient (BNVA) | payer MEDICARE, SELFPAY | PROVIDERS: PCP Nurse Practitioner Family; Visit Provider Nurse Practitioner | DX: Z96.652 Presence of left artificial knee joint (principal); Z98.890 Other specified postprocedural states | CPT/HCPCS: 99213 ==

== ENCOUNTER → 2024-12-20 11:34 | Outpatient (BNVA) | payer MEDICARE, SELFPAY | PROVIDERS: PCP Nurse Practitioner Family; Visit Provider Nurse Practitioner Family | DX: I10 Essential (primary) hypertension (principal) | CPT/HCPCS: 80053; 80061; 84550 ==